=== PATIENT | male | born 1940 | race Caucasian/White ===

== ENCOUNTER → 2018-11-24 06:36 | Outpatient (CLI) | payer MEDICARE, OTHER, SELFPAY ==
[2018-11-20 10:16] VITALS: BMI 21.0
--- NOTE | 2018-11-24 11:08 | PFTCOMP ---
COMPLETE PULMONARY FUNCTION TEST INTERPRETATION Brief HPI: Patient is a 78 year old male, currently under the care of myself, who presents to [facility] for complete pulmonary function tests secondary to diagnosis of dyspnea. Respiratory therapist reports good effort and reproducible results. Interpretation: Forced expiration spirometry shows a very severe large airways obstructive ventilatory defect with an FEV1 of 18% predicted. There is no significant bronchodilator response by strict ATS criteria. Spirograms are of good quality and plateau slowly, indicating slowly emptying areas of the lungs. The respiratory flow volume loop shows decreased expiratory flow rates at all lung volumes consistent with airway obstruction. Lung volumes by body plethysmography show a normal total lung capacity at 6.82 L, 87% predicted. FRC and RV are elevated out of proportion. Lung volume measurements are consistent with air-trapping. Diffusion capacity by carbon monoxide is decreased at 49% predicted. The airway resistance is elevated. No previous pulmonary function tests were available for review. Impression: Irreversible very severe large airways obstructive ventilatory defect resulting in air trapping, with a symmetric reduction diffusing capacity, consistent with a diagnosis of advanced COPD
--- OUTSIDE RECORDS SUMMARY | 2019-01-26 06:56 | XMS RPT_ITS ---
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 BASO % 0.1 LAB Lymph #(LOINC) 0.80 - 2.80 x10EE3/U Low L Lymph # 0.30 LAB Neut #(LOINC) 1.50 - 7.10 x10EE3/U L Neut # High 8.20 LAB [place] #(LOINC) 0.20 - 1.00 x10EE3/U L [place] # 0.40 LAB EO #(LOINC) 0.00 - 0.50 x10EE3/U L EO # 0.00 LAB Baso #(LOINC) 0.00 - 0.10 x10EE3/U L Baso # 0.00 LAB MANUAL DIFF(LOINC) MANUAL DIFF N/A LAB MORPHOLOGY(LOINC ) MORPHOLOGY N/A Result Comment: {CD] Performed By: #### [id number] #### [facility],[address] [place] [id number] TROPONIN Collected: 11/08/2018 Status: F Source: [facility] 4:54 AM [facility] REPOSITORY TYPE CODE TESTS RESULT OUT OF REFERENCE UNITS RANGE LAB TROPONIN 0.00 - 0.05 ng/ml I(LOINC) TROPONIN I 0.01 Result Comment: Elevated troponin (above the 99th percentile) usually indicates myocardial ischemia. Results must be interpreted within the clinical setting. 1.Non-ischemic pathology can also cause elevated troponin levels (e.g., acute pulmonary embolism, myocarditis, pericarditis, heart failure, intracranial injury, rhabdomyolisis, sepsis, shock and renal insufficiency). 2.Approximately 1% of healthy adults have elevated troponin levels. 3.Analytical false positive results rarely occur(due to multiple interferences such as heterophile antibodies). Performed By: #### [id number] #### [facility],[address] [place] [address] BMP WITH EGFR Collected: 11/08/2018 Status: F Source: [facility] 4:54 AM [facility] REPOSITORY TYPE CODE TESTS RESULT OUT OF RANGE REFERENCE UNITS LAB BMP with eGFR(LOINC) BMP with eGFR Result Comment: BASIC METABOLIC PANEL LAB SODIUM(LOINC) 136 - 145 mmol/l SODIUM Low 135 LAB POTASSIUM(LOINC) 3.5 - 5.1 mmol/L POTASSIUM 4.1 LAB CHLORIDE(LOINC) 98 - 107 mmol/L CHLORIDE 100 LAB CO2(LOINC) 21.0 - mmol/L 31.0 CO2 29.0 LAB GLUCOSE(LOINC) 74 - 106 mg/dl GLUCOSE High 179 LAB BUN(LOINC) 6 - 20 mg/dl BUN 17 LAB CREATININE(LOINC) 0.7 - 1.3 mg/dl CREATININE 1.1 LAB CALCIUM(LOINC) 8.6 - mg/dl 10.2 CALCIUM 8.6 LAB ANION GAP(LOINC) 10 - 20 mmol/L ANION GAP 10 LAB AGE(LOINC) years AGE 78 LAB eGFR(LOINC) 60 - 999 ML/MINUTE eGFR >60 LAB eGFR(AA)(LOINC) 60 - 999 ML/MINUTE eGFR(AA) >60 Result Comment: ACCORDING TO THE NATIONAL KIDNEY DISEASE EDUCATION PROGRAM(NKDE), A NORMAL eGFR IS A VALUE GREATER THAN OR EQUAL TO 60 ML/MIN/1.73 SQ METERS. CHRONIC KIDNEY DISEASE: <60mL/MIN/1.73 SQ METERS KIDNEY FAILURE: <15mL/MIN/1.73 SQ METERS THIS TEST SHOULD ONLY BE USED FOR PATIENTS 18 YEARS OF AGE AND OLDER. Performed By: #### [id number] #### [facility],[address] [facility] [id number] CBC Collected: 11/08/2018 Status: F [facility] AM [facility] REPOSITORY TYPE CODE TESTS RESULT OUT OF RANGE REFERENCE UNITS LAB CBC(LOINC) CBC Result Comment: CBC-COMPLETE BLOOD COUNT LAB WBC(LOINC) 4.5 - 10.8 x 10EE3/UL WBC 8.1 LAB RBC(LOINC) 4.50 - x 10EE6/UL 6.00 RBC Low 3.81 LAB HEMOGLOBIN(LOINC 13.0 - g/dl ) 17.5 Low HEMOGLOBIN 10.8 LAB HEMATOCRIT(LOINC 40.0 - % ) 52.0 Low HEMATOCRIT 31.6 LAB MCV(LOINC) 81 - 98 fl MCV 83 LAB MCH(LOINC) 27 - 33 pg MCH 28 LAB MCHC(LOINC) 32 - 36 X10 3 MCHC 34 LAB RDW/CV(LOINC) 12.0 - % 15.6 RDW/CV High 15.8 LAB PLATELET(LOINC) 150 - 450 x10EE3/UL PLATELET 156 LAB MPV(LOINC) 6.4 - 10.5 fl MPV 10.1 Result Comment: AUTOMATED DIFFERENTIAL LAB NEUT %(LOINC) 46.0 - 76.0 % NEUT % High 96.3 LAB LYMPH %(LOINC) 20.0 - 45.0 % Low LYMPH % 2.5 LAB MONOS %(LOINC) 0.0 - 10.0 % MONOS % 1.1 LAB EO %(LOINC) 0.0 - 7.0 % EO % 0.0 LAB BASO %(LOINC) 0.0 - 2.0 % BASO % 0.1 LAB Lymph #(LOINC) 0.80 - 2.80 x10EE3/U Low L Lymph # 0.20 LAB Neut #(LOINC) 1.50 - 7.10 x10EE3/U L Neut # High 7.80 LAB [place] #(LOINC) 0.20 - 1.00 x10EE3/U Low L [place] # 0.10 LAB EO #(LOINC) 0.00 - 0.50 x10EE3/U L EO # 0.00 LAB Baso #(LOINC) 0.00 - 0.10 x10EE3/U L Baso # 0.00 LAB MANUAL DIFF(LOINC) MANUAL DIFF N/A LAB MORPHOLOGY(LOINC ) MORPHOLOGY N/A Result Comment: {CD] Performed By: #### [id number] #### [place] [id number] TROPONIN Collected: 11/07/2018 Status: F Source: [facility] 10:56 PM [facility] REPOSITORY TYPE CODE TESTS RESULT OUT OF REFERENCE UNITS RANGE LAB TROPONIN 0.00 - 0.05 ng/ml I(LOINC) TROPONIN I <0.01 Result Comment: Elevated troponin (above the 99th percentile) usually indicates myocardial ischemia. Results must be interpreted within the clinical setting. 1.Non-ischemic pathology can also cause elevated troponin levels (e.g., acute pulmonary embolism, myocarditis, pericarditis, heart failure, intracranial injury, rhabdomyolisis, sepsis, shock and renal insufficiency). 2.Approximately 1% of healthy adults have elevated troponin levels. 3.Analytical false positive results rarely occur(due to multiple interferences such as heterophile antibodies). Performed By: #### [id number] #### [place] [id number] TROPONIN Collected: 11/07/2018 Status: F Source: [facility] 7:41 PM [facility] REPOSITORY TYPE CODE TESTS RESULT OUT OF REFERENCE UNITS RANGE LAB TROPONIN 0.00 - 0.05 ng/ml I(LOINC) TROPONIN I <0.01 Result Comment: Elevated troponin (above the 99th percentile) usually indicates myocardial ischemia. Results must be interpreted within the clinical setting. 1.Non-ischemic pathology can also cause elevated troponin levels (e.g., acute pulmonary embolism, myocarditis, pericarditis, heart failure, intracranial injury, rhabdomyolisis, sepsis, shock and renal insufficiency). 2.Approximately 1% of healthy adults have elevated troponin levels. 3.Analytical false positive results rarely occur(due to multiple interferences such as heterophile antibodies). Performed By: #### [id number] #### [place] [id number] CBC Collected: 11/07/2018 Status: F Source: [facility] 5:15 PM [facility] REPOSITORY TYPE CODE TESTS RESULT OUT OF RANGE REFERENCE UNITS LAB CBC(LOINC) CBC Result Comment: CBC-COMPLETE BLOOD COUNT LAB WBC(LOINC) 4.5 - 10.8 x 10EE3/UL WBC 8.0 LAB RBC(LOINC) 4.50 - x 10EE6/UL 6.00 RBC Low 4.39 LAB HEMOGLOBIN(LOINC 13.0 - g/dl ) 17.5 Low HEMOGLOBIN 12.0 LAB HEMATOCRIT(LOINC 40.0 - % ) 52.0 Low HEMATOCRIT 36.6 LAB MCV(LOINC) 81 - 98 fl MCV 84 LAB MCH(LOINC) 27 - 33 pg MCH 27 LAB MCHC(LOINC) 32 - 36 X10 3 MCHC 33 LAB RDW/CV(LOINC) 12.0 - % 15.6 RDW/CV High 16.3 LAB PLATELET(LOINC) 150 - 450 x10EE3/UL PLATELET 175 LAB MPV(LOINC) 6.4 - 10.5 fl MPV 10.2 Result Comment: AUTOMATED DIFFERENTIAL LAB NEUT %(LOINC) 46.0 - 76.0 % NEUT % High 84.2 LAB LYMPH %(LOINC) 20.0 - 45.0 % Low LYMPH % 6.4 LAB MONOS %(LOINC) 0.0 - 10.0 % MONOS % 7.5 LAB EO %(LOINC) 0.0 - 7.0 % EO % 1.2 LAB BASO %(LOINC) 0.0 - 2.0 % BASO % 0.7 LAB Lymph #(LOINC) 0.80 - 2.80 x10EE3/U Low L Lymph # 0.50 LAB Neut #(LOINC) 1.50 - 7.10 x10EE3/U L Neut # 6.70 LAB [place] #(LOINC) 0.20 - 1.00 x10EE3/U L [place] # 0.60 LAB EO #(LOINC) 0.00 - 0.50 x10EE3/U L EO # 0.10 LAB Baso #(LOINC) 0.00 - 0.10 x10EE3/U L Baso # 0.10 LAB MANUAL DIFF(LOINC) MANUAL DIFF N/A LAB MORPHOLOGY(LOINC ) MORPHOLOGY N/A Result Comment: {CD] Performed By: #### [id number] #### [facility],[address] [place], [place] [id number] D-DIMER, QUANTITATIVE Collected: 11/07/2018 Status: F Source: [facility] 5:15 PM [facility] REPOSITORY TYPE CODE TESTS RESULT OUT OF REFERENCE UNITS RANGE LAB D-DIMER, QUANTITATI VE(LOINC) D-DIMER, QUANTITATIVE Result Comment: QUANT D-DIMER LAB D-DIMER QUANT(LOINC) 0 - 230 ng/ml D-DIMER QUANT 150 Performed By: #### [id number] #### [place] [id number] Observed: 11/07/2018 Status: F Source: [facility] INFLUENZA VIRUS RAPID 5:15 [facility] A/B REPOSITORY INFLUENZA A NEGATIVE INFLUENZA B NEGATIVE INTERNAL NEG QC PASS INTERNAL POS QC PASS EXTERNAL QC DONE? YES A NEGATIVE TEST RESULT DOES NOT EXCLUDE INFECTION WITH INFLUENZA A OR B. THEREFORE, THE RESULTS OBTAINED FROM THIS FLU TEST SHOULD BE USED IN CONJUCTION WITH CLINICAL FINDINGS TO MAKE AN ACCURATE DIAGNOSIS. A POSITIVE RESULT DOES NOT RULE OUT CO-INFECTIONS WITH OTHER PATHOGENS OR IDENTIFY ANY SPECIFIC INFLUENZA A VIRUS SUBTYPE.CO-INFECTION WITH INFLUENZA A AND B IS RARE. IT IS RECOMMENDED THAT DUAL POSITIVE RESULTS BE CONFIRMED BY VIRAL CULTURE OR AN FDA-CLEARED INFLUENZA A AND B MOLECULAR ASSAY. INDIVIDUALS WHO HAVE RECEIVED NASALLY ADMINISTERED INFLUENZA A VACCINE MAY TEST POSITIVE IN COMMERCIALLY AVAILABLE INFLUENZA RAPID DIAGNOSTIC TESTS FOR UP TO THREE DAYS. Performed By: #### [id number] #### [place] [id number] LACTATE Collected: 11/07/2018 Status: F Source: [facility] 5:15 [facility] REPOSITORY TYPE CODE TESTS RESULT OUT OF REFERENCE UNITS RANGE LAB LACTATE(KIYA 4.5 - 18.0 mg/dL NM) LACTATE 9.3 Performed By: #### [id number] #### [place] [id number] TROPONIN Collected: 11/07/2018 Status: F Source: [facility] 5:15 [facility] REPOSITORY TYPE CODE TESTS RESULT OUT OF REFERENCE UNITS RANGE LAB TROPONIN 0.00 - 0.05 ng/ml I(LOINC) TROPONIN I 0.01 Result Comment: Elevated troponin (above the 99th percentile) usually indicates myocardial ischemia. Results must be interpreted within the clinical setting. 1.Non-ischemic pathology can also cause elevated troponin levels (e.g., acute pulmonary embolism, myocarditis, pericarditis, heart failure, intracranial injury, rhabdomyolisis, sepsis, shock and renal insufficiency). 2.Approximately 1% of healthy adults have elevated troponin levels. 3.Analytical false positive results rarely occur(due to multiple interferences such as heterophile antibodies). Performed By: #### [id number] #### [facility],[address] [place] [address] CMP WITH EGFR Collected: 11/07/2018 Status: F Source: [facility] 5:15 PM [facility] REPOSITORY TYPE CODE TESTS RESULT OUT OF RANGE REFERENCE UNITS LAB CMP with eGFR(LOINC) CMP with eGFR Result Comment: COMPREHENSIVE METABOLIC PANEL LAB SODIUM(LOINC) 136 - 145 mmol/l SODIUM 136 LAB POTASSIUM(LOINC) 3.5 - 5.1 mmol/L POTASSIUM 3.8 LAB CHLORIDE(LOINC) 98 - 107 mmol/L CHLORIDE 98 LAB CO2(LOINC) 21.0 - mmol/L 31.0 CO2 31.0 LAB GLUCOSE(LOINC) 74 - 106 mg/dl GLUCOSE 100 LAB BUN(LOINC) 6 - 20 mg/dl BUN 15 LAB CREATININE(LOINC) 0.7 - 1.3 mg/dl CREATININE 1.1 LAB AST/SGOT(LOINC) 13 - 39 U/L AST/SGOT 16 LAB ALK PHOS(LOINC) 38 - 126 U/L ALK PHOS 53 LAB CALCIUM(LOINC) 8.6 - mg/dl 10.2 CALCIUM 9.3 LAB TOTAL PROTEIN(LOINC) 6.4 - 8.3 g/dl TOTAL PROTEIN 7.4 LAB ALBUMIN(LOINC) 3.4 - 4.8 g/dL ALBUMIN 4.1 LAB GLOBULIN(LOINC) 1.5 - 3.8 G/DL GLOBULIN 3.3 LAB A/G RATIO(LOINC) 0.9 - 1.6 A/G RATIO 1.2 LAB TOTAL BILI(LOINC) 0.0 - 1.5 mg/dl TOTAL BILI 0.6 LAB B/C RATIO(LOINC) 0 - 30 ratio B/C RATIO 14 LAB ALT/SGPT(LOINC) 10 - 40 U/L ALT/SGPT 10 LAB ANION GAP(LOINC) 10 - 20 mmol/L ANION GAP 11 LAB AGE(LOINC) years AGE 78 LAB eGFR(LOINC) 60 - 999 ML/MINUTE eGFR >60 LAB eGFR(AA)(LOINC) 60 - 999 ML/MINUTE eGFR(AA) >60 Result Comment: ACCORDING TO THE NATIONAL KIDNEY DISEASE EDUCATION PROGRAM(NKDE), A NORMAL eGFR IS A VALUE GREATER THAN OR EQUAL TO 60 ML/MIN/1.73 SQ METERS. CHRONIC KIDNEY DISEASE: <60mL/MIN/1.73 SQ METERS KIDNEY FAILURE: <15mL/MIN/1.73 SQ METERS THIS TEST SHOULD ONLY BE USED FOR PATIENTS 18 YEARS OF AGE AND OLDER. Performed By: #### [id number] #### [facility],[address] [place] [address] BNP (B-TYPE NATRIURETIC Collected: 11/07/2018 Status: F Source: [facility] PEPTIDE) 5:15 PM [facility] REPOSITORY TYPE CODE TESTS RESULT OUT OF RANGE REFERENCE UNITS LAB BNP(LOINC) 1 - 100 pg/ml BNP 70 Performed By: #### [id number] #### [facility],[address] [place] [address] Observed: 11/07/2018 Status: F Source: [facility] CULTURE BLOOD 5:15 PM [facility] REPOSITORY CULTURE BLOOD CULTURE BLOOD SET: 1 of 2 24HOUR REPORT NEGATIVE 48HOUR REPORT NEGATIVE 72HOUR REPORT NEGATIVE M I C R O B I O L O G Y R E P O R T FINAL Antimicrobial Susceptibility and Organism Identification Report Specimen Number : [id number] Requested : 11/07/18 Specimen Source : BLOOD Collected : 11/07/18 17:15 [facility] [place] : Emergency Room Received : 11/07/18 17:15 Requesting Physician : YIN BELL Patient/Specimen Tests and Comments Specimen Comments FINAL REPORT: No Growth at 5 Days Tech : Source : BLOOD ID # : [id number] FINAL Report Date : / / : Collected : 11/07/18 17:15 [email or web address] 11/[email or web address] Performed By: #### [id number] #### [facility],[address] [place] [address] Observed: 11/07/2018 Status: F Source: [facility] BLOOD 5:15 PM [facility] REPOSITORY CULTURE BLOOD CULTURE BLOOD SET: 2 of 2 24HOUR REPORT NEGATIVE 48HOUR REPORT NEGATIVE 72HOUR REPORT NEGATIVE M I C R O B I O L O G Y R E P O R T FINAL Antimicrobial Susceptibility and Organism Identification Report Specimen Number : [id number] Requested : 11/07/18 Specimen Source : BLOOD Collected : 11/07/18 17:15 [facility] [place] : Med/Surg Received : 11/07/18 17:15 Requesting Physician : YIN BELL Patient/Specimen Tests and Comments Specimen Comments FINAL REPORT: No Growth at 5 Days Tech : Source : BLOOD ID # : [id number] FINAL Report Date : / / : Collected : 11/07/18 17:15 11/13/[email or web address] 11/13/[email or web address] Performed By: #### [id number] #### [facility],[address] [place] [address] CHEST 1 VIEW Observed: 11/07/2018 Status: F Source: [facility] 4:55 PM [place] [address] Patient: MARY RODRIGUEZ Phone#: : [phone] Age: 78 Gender: M Pt. Type: ER Account: [id number] Location: [facility] Ordering: DIEUDONNE JONES Exam Date: 11/07/2018/16:46 Family Phys: KALPESH HORVATH Charge Code: 635018 Physician: Sequoyah Order #: [id number] DLP Dose#: PROCEDURE: X-RAY CHEST 1 VIEW COMPARISON: [facility], XR, CHEST 1 VIEW, 09/18/2018, 19:09. INDICATIONS: Shortness of breath FINDINGS: LUNGS: The lungs are hyperinflated. Streaky and bilateral lower lobe densities improved since prior exam. They've be related to chronic interstitial change. VASCULATURE: Normal. Unremarkable pulmonary vasculature. CARDIAC: Normal. No cardiac silhouette abnormality or cardiomegaly. MEDIASTINUM: Normal. No visible mass or adenopathy. PLEURA: Normal. No effusion or pleural thickening. BONES: Normal. No fracture or visible bony lesion. OTHER: Negative. CONCLUSION: Streaky lower lobe densities improved since prior exam. Possible chronic interstitial change. COPD. Dictated by: Rachel Chang MD on 11/08/2018 at 11:07 Approved by: Rachel Chang MD on 11/08/2018 at 11:07 EMERGENCY REPORT Observed: 11/07/2018 Status: F Source: [facility] 4:29 PM [facility] EMERGENCY ROOM REPORT NAME ACCOUNT SEX AGE ADMIT DISCHARGE PT MED. RECORD# NUMBER DATE DATE TYPE MARY RODRIGUEZ [id number] M 78 11/07/18 1 [id number] ROOM: [facility] DATE OF : 1940 DICTATING PHYSICIAN: Dieudonne Jones CHIEF COMPLAINT: Shortness of breath. HISTORY OF PRESENT ILLNESS: Patient has known significant COPD. Since yesterday, and particularly today, he has had increasing shortness of breath. It is particularly worse with activity. He can hardly walk more than a couple of steps without stopping, but he feels short of breath even at rest. He has not had any fever. He has a slight cough that is not productive. No chills, no nausea or vomiting. He has been able to eat. He is not complaining of any chest pain. PAST MEDICAL HISTORY: As mentioned, significant for advanced COPD, also hypertension. PAST SURGICAL HISTORY: No previous surgeries. MEDICATIONS: He is on O2 at home at 2 liters p.r.n. but he has been using it more through the day today. ALLERGIES: He has no allergies. SOCIAL HISTORY: He lives at home. He does not smoke or drink alcohol. REVIEW OF SYSTEMS: As mentioned above. No pain or swelling to his extremities. No weakness to his extremities. PHYSICAL EXAMINATION: This is a 78-year-old thin, white male who is alert and appropriate. Patient does not appear toxic, though mild to moderate dyspnea at rest. His skin is pink, warm and dry. HEENT Exam: Eyes, ears, nose, mouth and throat are all within normal limits. His neck is supple without any JVD. Very diminished breath sounds though equal bilaterally. A hint of expiratory wheeze bilaterally. Cardiac exam, regular rhythm without ectopy or murmurs. No chest wall tenderness. Abdomen is soft and nontender. He moves extremities appropriately without any focal weaknesses. Good peripheral pulses and generally good capillary refill. Vital Signs: Temperature 99.3, pulse 99, respirations 24, blood pressure 163/87, O2 saturation on a couple of liters were about 87 to 88%. DIAGNOSTIC DATA: EKG did not show any acute abnormalities. Chest x-ray and lab studies were obtained. Chest x-ray per my reading showed the possibility of a minimal Page 1 of 2 MARY RODRIGUEZ Emergency Room Report left lower lobe infiltrate. Lab studies returned showing a CBC with a white count of 8000 and 84% neutrophils. H&H was 12 and 36.6. D-dimer was normal. Lactate, BNP and troponin were all normal. CMP was normal. EMERGENCY DEPARTMENT COURSE AND TREATMENT: I did increase his O2 to 3-4 liters. IV was placed. He was given a DuoNeb aerosol. He was given Solu-Medrol IV. He did feel slightly improved with the increased O2 and DuoNeb aerosol. He was begun on Rocephin IV in the ED. DIAGNOSIS: Chronic obstructive pulmonary disease exacerbation with hypoxemia and possible pneumonitis. PLAN/DISPOSITION: Discussed with Dr. Zavaleta who will admit for further management. Dictated By: Dieudonne Jones MD 11/07/18 20:05 JOB #: [id number] Transcribed By: alexandra 11/07/18 20:16 Electronically signed by: JALIL Jones M.D. 11/12/18 19:55 Page 2 of 2 MARY RODRIGUEZ Emergency Room Report HISTORY AND PHYSICAL Observed: 11/07/2018 Status: F Source: [facility] 4:29 PM [facility] HISTORY & PHYSICAL NAME ACCOUNT SEX AGE ADMIT DISCHARGE PT MED. RECORD# NUMBER DATE DATE TYPE MARY RODRIGUEZ [id number] M 78 11/07/18 1 [id number] ROOM: [facility] DATE OF : [birth year] DICTATING PHYSICIAN: Jesus Zavaleta ADMITTING DIAGNOSES: 1. Chronic obstructive pulmonary disease exacerbation. 2. Pneumonia. CHIEF COMPLAINT: Cough and shortness of breath. HISTORY OF PRESENT ILLNESS: The patient is a 78-year-old gentleman with a history of COPD. The patient was in usual state of health. He stated to get ill at least a few days prior to admission. His symptoms were mainly increasing shortness of breath. He did start about a week earlier with some cough. The cough usually is productive in his case with phlegm on a daily basis, but he noticed some increasing in the amount of phlegm he brings up. The color has changed to darker, and then on the day of admission he became markedly short of breath, barely could walk a few steps, and he presented to the emergency room. In the emergency room, he was tachypneic at rest and he was admitted for management when he was found to have bilateral wheezes. His white count was normal, but he had left shift. Chest x-ray revealed an infiltrate. When I saw the patient, he was coughing a lot. He had a lot of drainage with complaint also about postnasal drip and also he had shortness of breath. He denied any shaking chills or fever. The patient's appetite has been good. He has no significant weight loss or gain. PAST MEDICAL HISTORY: Remarkable for (1) COPD. I do not see in the medical record where we have pulmonary function test on this gentleman. (2) Chronic oxygen use. The patient uses that at home. (3) Right inguinal hernia repair. (4) Hypertension. (5) Teeth extraction. MEDICATIONS: The patient is on (1) Atenolol 25 mg daily. (2) Ipratropium nasal spray 2 sprays each nostril twice a day. (3) DuoNeb treatment twice a day. (4) Losartan 50 mg daily. (5) Mucinex 1200 mg twice daily. (6) Symbicort 2 puffs twice a day. (7) Tamsulosin 0.4 mg daily. (8) Ventolin 2 puffs as needed. (9) Hydrochlorothiazide 25 mg daily. ALLERGIES: No known drug allergies. FAMILY HISTORY: Fathers side of the family history had cancer. Father was a smoker Page 1 of 3 MARY RODRIGUEZ History & Physical and had a lot of alcohol. There is no family history of coronary artery disease. SOCIAL HISTORY: The patient is . He quit smoking when he was 37 years old. He did smoke for about 20 years. 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 He has 2 daughters. REVIEW OF SYSTEMS: The patient has denied fever, chills, and night sweats. No weight loss or gain. No headache, blurry vision, or earache. He does have postnasal drip. No neck pain. No chest pain. He had shortness of breath and cough. No nausea, vomiting, abdominal pain, diarrhea, constipation, difficulty with urination, increased frequency or burning, and no skin rashes. PHYSICAL EXAMINATION GENERAL APPEARANCE: This is a 78-year-old gentleman sitting up in bed. VITAL SIGNS: Highest temperature 99.4, blood pressure now 120/64, respirations 18, and heart rate 84. HEENT: Pupils are round, equal, and reactive. Normal eye motion. No congestion. No icterus. No sinus tenderness. Tongue to midline. NECK: Neck is supple. LUNGS: Revealed bilateral wheezes and rhonchi. HEART: Regular and distant. ABDOMEN: Soft. No tenderness. EXTREMITIES: Revealed no edema or cyanosis. He had moderate clubbing. DIAGNOSTIC DATA: Laboratory data has revealed the following: His white count was 8000, hemoglobin 12, hematocrit 36.6. He had 84.2% neutrophils. Cardiac markers are negative. Sodium 136, potassium 3.8, BUN 15, creatinine 1.1. IMPRESSION: 1. Acute chronic obstructive pulmonary disease exacerbation. 2. Pneumonia based on the chest x-ray findings. PLAN: 1. Admit the patient to the hospital. 2. Broad spectrum antibiotic. 3. Steroids. 4. Bronchodilator. 5. Deep venous thrombosis prophylaxis. 6. Saline nose spray. Page 2 of 3 MARY RODRIGUEZ History & Physical 7. The above was discussed with the patient and his family, the plan of care. I did question the patient whether he has been exposed to asbestos, and apparently he was not or at least he does not think he ever was. His history of tobacco is somewhat limited, but he does appear to be doing fairly well with his chronic obstructive pulmonary disease. He has home oxygen, but he is stable and he does not have frequent hospital admissions. Dictated By: Jesus Zavaleta MD 11/08/18 15:12 JOB #: [id number] Transcribed By: abrahan 11/08/18 16:28 Electronically signed by: E-Sign: JESUS ZAVALETA MD 11/24/18 09:45 Update to H&P: [ ] No changes: I have examined the patient and reviewed the H&P and there are no changes. [ ] As previously dictated with the following changes: PHYSICIAN SIGNATURE: TIME: DATE: Page 3 of 3 MARY RODRIGUEZ History & Physical PROGRESS NOTES Observed: 11/07/2018 Status: F Source: [facility] 4:29 PM [facility] PROGRESS NOTE NAME ACCOUNT SEX AGE ADMIT DISCHARGE PT MED. RECORD# NUMBER DATE DATE TYPE MARY RODRIGUEZ [id number] M 78 11/07/18 1 [id number] ROOM: [facility] DATE OF : 1940 DICTATING PHYSICIAN: Jesus Zavaleta DATE OF SERVICE: November 09, 2018 SUBJECTIVE: He feels better today. He continues with a cough productive of yellow phlegm. No chest pain. Update from nursing staff as well. OBJECTIVE: Blood pressure is 125/59, heart rate 90, respirations 14, temperature 98.6, and oxygen saturation 95% on 2 liters. This is a well- nourished, well-developed male in no acute distress. Neck is supple. No JVD. Lungs with normal respiratory effort and improved rhonchi with a few scattered wheezes but better. Heart is a regular rate and rhythm. Abdomen is soft and nontender. Extremities: No edema with moderate clubbing. DIAGNOSTIC DATA: White count is 8.9, hemoglobin 10.7, and hematocrit 32.5. Troponins were negative. Sodium is 138, potassium 4.1, BUN 25, and creatinine 1.1. Blood cultures are negative at 24 hours. ASSESSMENT/PLAN: 1. Acute chronic obstructive pulmonary disease exacerbation, improving on steroids, oxygen support and bronchodilators. 2. Acute community-acquired pneumonia, on broad-spectrum intravenous antibiotics, afebrile with normal white count. The above was discussed with the patient. All of his questions were answered, and he verbalized understanding of the plan. Possible discharge home tomorrow if stable. Dictated by joselin Sanford for Dr. Zavaleta. I examined the patient myself , the above E&M is accurate and done by me Naren Zavaleta M.D. Dictated By: Jesus Zavaleta MD 11/09/18 10:58 JOB #: [id number] Transcribed By: honey 11/09/18 11:50 Electronically signed by: E-Sign: JESUS ZAVALETA MD 11/24/18 09:50 Page 1 of 1 MARY RODRIGUEZ Progress Note DISCHARGE SUMMARY Observed: 11/07/2018 Status: F Source: [facility] 4:29 PM [facility] DISCHARGE SUMMARY NAME ACCOUNT SEX AGE ADMIT DISCHARGE PT MED. RECORD# NUMBER DATE DATE TYPE MARY RODRIGUEZ [id number] M 78 11/07/18 11/10/18 1 [id number] ROOM: [facility] DATE OF : 1940 DICTATING PHYSICIAN: Jesus Zavaleta FINAL DIAGNOSES: 1. Acute chronic obstructive pulmonary disease exacerbation. 2. Acute community acquired pneumonia. DIAGNOSTIC DATA: Laboratory findings on discharge: White count 7.7, hemoglobin 10.5, hematocrit 31.2. Troponins negative. Sodium 138, potassium 4.2, BUN 31, creatinine 1.2. Glucose 140. Blood cultures negative at 48 hours. HOSPITAL COURSE: For a full history and physical, please see the chart. For a brief summary, see below. This is a 78-year-old male with past medical history significant for COPD, chronic oxygen use at home, and hypertension. He came in with cough increasing with increasing shortness of breath. He came to the emergency room. He was tachypneic, bilateral wheezes, normal white count, but a left shift. Chest x-ray revealed infiltrate. He had a lot of postnasal drip, as well as cough. He was admitted to the hospital with acute community acquired pneumonia and COPD exacerbation, oxygen support, steroids, bronchodilators, and broad spectrum IV antibiotics. Blood cultures were obtained and were negative, saline nasal spray. I could not find a pulmonary function test review; however, he is on chronic oxygen support at home. Today, on the date of discharge, his daughter is present. He feels he is ready to go home. Blood pressure 125/64, heart rate 84, respirations 24, temperature 98.6, oxygen saturation 92 to 94% on 2 liters, which he wears at home. This is a well-developed 78-year-old male in no acute distress. He is alert, pleasant, and cooperative and able to answer questions appropriately. Neck is supple. No JVD. Lungs: Normal respiratory effort, equal lung expansion, diminished breath sounds bilaterally, a few scattered wheezes and prolonged expiration. Heart: Regular rate and rhythm. Discharge instructions were discussed with him and his daughter at the bedside. All of their questions were answered. They verbalized understanding of the plan. It was recommended that he follow up with Dr. Horvath and recommend pulmonary function tests in 6 weeks. DISPOSITION: Discharge destination home. MEDICATIONS ON DISCHARGE: (1) Ceftin 500 mg twice daily for 5 days. (2) Saline nasal spray 2 sprays each nostril 4 times daily. (3) Prednisone 40 mg p.o. daily for 5 days. (4) Delsym 10 mL every 12 hours for cough. All other medications are as at home including (5) Albuterol aerosol treatments 4 times daily p.r.n. (6) DuoNeb treatments 2 times daily p.r.n. (7) Symbicort 160/4.5 1 inhalation daily. (8) Ventolin Page 1 of 2 MARY RODRIGUEZ Discharge Summary inhaler 2 puffs every 4 to 6 hours p.r.n. (9) Mucinex 1200 mg twice daily. (10) Atenolol 25 mg daily. (11) Losartan 50 mg daily. (12) Hydrochlorothiazide 25 mg daily. (13) Tamsulosin 0.4 mg daily. DISCHARGE INSTRUCTIONS/PLAN: Increase activity as tolerated. Acapella, incentive spirometry, low-salt diet. Follow up with Dr. Horvath on November 17 at 10:20 a.m. Recommend pulmonary function test in 6 weeks. I examined the patient myself , the above E&M is accurate and done by me Naren Zavaleta M.D. Dictated by joselin Sanford for Jesus Zavaleta M.D. 11/10/18 11:14 JOB #: [id number] Transcribed By: am 11/10/18 16:31 Electronically signed by: E-Sign: JESUS ZAVALETA MD 11/24/18 10:18 Page 2 of 2 MARY RODRIGUEZ Discharge Summary Observed: 09/19/2018 Status: F Source: [facility] CULTURE SPUTUM 3:20 [facility] REPOSITORY CULTURE SPUTUM _SPUTUM CULTURE_ SPUTUM SPECIMEN EXAMINATION SPUTUM ACCEPTABLE ? GRAM STAIN AMOUNT AND DESCRIPTION _MANY_GRAM_POSITIVE_RODS 09/19/18.JLN. _MODERTE_GRAM_POSITIVE_COCCI 09/19/18.940.JLN. M I C R O B I O L O G Y R E P O R T FINAL Antimicrobial Susceptibility and Organism Identification Report Specimen Number : [id number] Requested : 09/19/18 Specimen Source : SPUTUM Collected : 09/19/18 03:20 [facility] : Med/Surg Received : 09/19/18 03:20 Requesting Physician : JACOB Patient/Specimen Tests and Comments Specimen Comments FINAL REPORT: SCANT GROWTH GRAM NEGATIVE RODS Organisms Identified -------- * 01 Stenotrophomonas maltophilia //18 Tech : Source : SPUTUM ID # : [id number] FINAL Report Date : / / : Collected : 09/19/18 03:20 Continued on Next Page M I C R O B I O L O G Y R E P O R T FINAL Antimicrobial Susceptibility and Organism Identification Report Isolate 01 Stenotrophomonas maltophilia Stenotrophomonas maltophilia DRUG TERA Sys. Urine UNITS --- ----- ----- Ceftazidime 16 I Ertapenem >4 Levofloxacin <=2 S Tobramycin 8 +, ++, +++, or S = Susceptible N/R = Not Reported Shital = Beta Lactamase Positive I = Intermediate CC = Cost Code TFG = Thymidine-dependent Strain R = Resistant TERA = mcg/ml (mg/L) Blank = Data not available, or drug not advisable or tested For Blood and CSF Isolates, a Beta-Lactamase test is recommended for Enterococus species. IB appears in place of S, I (S), +, ++, or +++ with species known to possess inducible B-lactamases; potentially they may become resistant to all B-lactam drugs. Monitoring of patients during/after therapy is recommended. Avoid other/combined B-lactam drugs. (a) Use maximum doses of drug with an aminoglycoside for P. aeruginosa in patients with granulocytopenia or serious infections. (b) Breakpoints based on parenteral dose. For cefuroxime Axetil (PO) use <8=S, 8-16=I, >16=R. (c) For non-enterococcal streptococci, Micrococcus species, and Listeria species, refer to the Ampicillin interpretation. * Interpretations based on approx. adult attainable systemic/urine levels, except drugs with <3 dilutions, which print NCCLS. Doses are guidelines; consider weight and renal/hepatic function. Urine interpretation for lower UTI only. Interpretations based on NCCLS M7-A2. Ticar/K Clav'ate for gram positives based on regulator mechanic's breakpoints. Tech : Source : SPUTUM ID # : [id number] FINAL Report Date : / / : Collected : 09/19/18 03:20 09/22/18.1041.KLS. 09/20/18.0742.JLN. 09/22/18.1043.KLS.COMPLETE Performed By: #### [id number] #### [place] [address] CT CHEST (PE PROTOCOL) Observed: 09/18/2018 Status: F Source: [facility] 9:41 PM [place] [address] Patient: MARY RODRIGUEZ Phone#: : [phone] Age: 78 Gender: M Pt. Type: ER Account: [id number] Location: [facility] Ordering: JEISON JAMES Exam Date: 09/18/2018/21:30 Family Phys: KALPESH HORVATH Charge Code: 527164 Physician: Sequoyah Order #: [id number] DLP Dose#: PROCEDURE: CT CHEST WITH CONTRAST FOR PE COMPARISON: None. INDICATIONS: Shortness of breath. TECHNIQUE: After obtaining the patient's consent, CT images were obtained with non-ionic intravenous contrast material. Multi-planar images were created to optimize visualization of vascular anatomy with MPR/MIPS and 3D imaging. All CT scans at this facility use dose modulation, iterative reconstruction, and/or weight based dosing when appropriate to reduce radiation dose to as low as reasonably achievable. IV CONTRAST: Omnipaque 350,78ml TOTAL DOSE: 4.80 CTDIvol(mGy) FINDINGS: VASCULATURE: Normal. No visible pulmonary arterial thrombus or attenuation. AORTA: Normal. No aneurysm or dissection. LUNGS: Lingular infiltrate. Patchy bilateral lower lobe nodular infiltrates. Bibasilar atelectasis JAZ: Normal. No mass or adenopathy. MEDIASTINUM: Normal. No mass or adenopathy. CARDIAC: Normal. No enlargement, pericardial thickening, or significant calcification. PLEURA: Normal. No mass or effusion. CHEST WALL: Normal. No mass or axillary adenopathy. LIMITED ABDOMEN: Normal. Limited images of the upper abdomen are unremarkable. BONES: Normal. No bony lesion or fracture. OTHER: Negative. CONCLUSION: Continued Report - Page 2 of 2 Patient: MARY RODRIGUEZ Phone#: : [phone] Age: 78 Gender: M Pt. Type: ER Account: [id number] Location: 2 Ordering: JEISON JAMES Exam Date: 09/18/2018/21:30 Family Phys: KALPESH ANT Charge Code: [id number] Physician: Sequoyah Order #: [id number] DLP Dose#: 1. Patchy bilateral lower lobe infiltrates. 2. There is no evidence of pulmonary embolus. Dictated by: Rachel Chang MD on 09/20/2018 at 11:40 Approved by: Rachel Chang MD on 09/20/2018 at 11:40 ARTERIAL BLOOD GAS Collected: 09/18/2018 Status: F Source: [facility] ANALYSIS 8:04 PM [facility] REPOSITORY TYPE CODE TESTS RESULT OUT OF REFERENCE UNITS RANGE LAB ARTERIAL BLOOD GAS ANALYSIS(LOINC ) ARTERIAL BLOOD GAS ANALYSIS Result Comment: ARTERIAL BLOOD GAS LAB pH(LOINC) 7.35 - 7.45 7.45 pH LAB PCO2(LOINC) 35 - 45 mm Hg 40 PCO2 LAB PO2(LOINC) 80 - 105 mm Hg Low 65 PO2 LAB HCO3(LOINC) 22 - 26 mmol/L High 28 HCO3 LAB BE(LOINC) -2 - 3 High 4 BE LAB SaO2(LOINC) 95 - 98 Low 93 SaO2 Result Comment: TIME RESULT CALLED _2012 09/18/18.2012.JAN. { FIO2/LPM 4LPM LAB MODALITY(LOINC) MODALITY LRA LAB SPO2(LOINC) SPO2 93 LAB TOTAL RR(LOINC) TOTAL RR 20 LAB PULSE(LOINC) PULSE 115 LAB SAMPLE SITE(LOINC) SAMPLE SITE LRA LAB VENT(LOINC) VENT N/A LAB ALLENS TEST(LOINC) ALLENS TEST + Result Comment: { TIME CALLED 2212 Performed By: #### [id number] #### [place] [address] Observed: 09/18/2018 Status: F Source: [facility] INFLUENZA VIRUS RAPID 7:30 PM [facility] A/B REPOSITORY INFLUENZA A NEGATIVE INFLUENZA B NEGATIVE INTERNAL NEG QC PASS INTERNAL POS QC PASS EXTERNAL QC DONE? YES A NEGATIVE TEST RESULT DOES NOT EXCLUDE INFECTION WITH INFLUENZA A OR B. THEREFORE, THE RESULTS OBTAINED FROM THIS FLU TEST SHOULD BE USED IN CONJUCTION WITH CLINICAL FINDINGS TO MAKE AN ACCURATE DIAGNOSIS. A POSITIVE RESULT DOES NOT RULE OUT CO-INFECTIONS WITH OTHER PATHOGENS OR IDENTIFY ANY SPECIFIC INFLUENZA A VIRUS SUBTYPE.CO-INFECTION WITH INFLUENZA A AND B IS RARE. IT IS RECOMMENDED THAT DUAL POSITIVE RESULTS BE CONFIRMED BY VIRAL CULTURE OR AN FDA-CLEARED INFLUENZA A AND B MOLECULAR ASSAY. INDIVIDUALS WHO HAVE RECEIVED NASALLY ADMINISTERED INFLUENZA A VACCINE MAY TEST POSITIVE IN COMMERCIALLY AVAILABLE INFLUENZA RAPID DIAGNOSTIC TESTS FOR UP TO THREE DAYS. Performed By: #### [id number] #### [place] [address] Observed: 09/18/2018 Status: F Source: [facility] CULTURE BLOOD 7:25 PM [facility] REPOSITORY CULTURE BLOOD CULTURE BLOOD SET: 1 of 2 24HOUR REPORT NEGATIVE 48HOUR REPORT NEGATIVE 72HOUR REPORT NEGATIVE M I C R O B I O L O G Y R E P O R T FINAL Antimicrobial Susceptibility and Organism Identification Report Specimen Number : [id number] Requested : 09/18/18 Specimen Source : BLOOD Collected : 09/18/18 19:25 Singh [facility] Isolation : Emergency Room Received : 09/18/18 19:25 Requesting Physician : JACOB Patient/Specimen Tests and Comments Specimen Comments FINAL REPORT: No Growth at 5 Days Tech : Source : BLOOD ID # : [id number] FINAL Report Date : / / : Collected : 09/18/18 19:25 09/24/18.CORY. 09/24/18.CORY.COMPLETE Performed By: #### [id number] #### [facility],[address] [place] [address] CBC Collected: 09/18/2018 Status: F Source: [facility] 7:20 PM [facility] REPOSITORY TYPE CODE TESTS RESULT OUT OF RANGE REFERENCE UNITS LAB CBC(LOINC) CBC Result Comment: CBC-COMPLETE BLOOD COUNT LAB WBC(LOINC) 4.5 - 10.8 x 10EE3/UL WBC 10.1 LAB RBC(LOINC) 4.50 - x 10EE6/UL 6.00 RBC Low 4.07 LAB HEMOGLOBIN(LOINC 13.0 - g/dl ) 17.5 Low HEMOGLOBIN 11.3 LAB HEMATOCRIT(LOINC 40.0 - % ) 52.0 Low HEMATOCRIT 33.8 LAB MCV(LOINC) 81 - 98 fl MCV 83 LAB MCH(LOINC) 27 - 33 pg MCH 28 LAB MCHC(LOINC) 32 - 36 X10 3 MCHC 33 LAB RDW/CV(LOINC) 12.0 - % 15.6 RDW/CV High 16.1 LAB PLATELET(LOINC) 150 - 450 x10EE3/UL PLATELET 179 LAB MPV(LOINC) 6.4 - 10.5 fl MPV 10.0 Result Comment: AUTOMATED DIFFERENTIAL LAB NEUT %(LOINC) 46.0 - 76.0 % NEUT % High 84.3 LAB LYMPH %(LOINC) 20.0 - 45.0 % Low LYMPH % 5.6 LAB MONOS %(LOINC) 0.0 - 10.0 % MONOS % 8.4 LAB EO %(LOINC) 0.0 - 7.0 % EO % 1.0 LAB BASO %(LOINC) 0.0 - 2.0 % BASO % 0.7 LAB Lymph #(LOINC) 0.80 - 2.80 x10EE3/U Low L Lymph # 0.60 LAB Neut #(LOINC) 1.50 - 7.10 x10EE3/U L Neut # High 8.50 LAB [place] #(LOINC) 0.20 - 1.00 x10EE3/U L [place] # 0.90 LAB EO #(LOINC) 0.00 - 0.50 x10EE3/U L EO # 0.10 LAB Baso #(LOINC) 0.00 - 0.10 x10EE3/U L Baso # 0.10 LAB MANUAL DIFF(LOINC) MANUAL DIFF N/A LAB MORPHOLOGY(LOINC ) MORPHOLOGY N/A Result Comment: {CD] Performed By: #### [id number] #### [facility],[address] [place], [place] [id number] D-DIMER, QUANTITATIVE Collected: 09/18/2018 Status: F Source: [facility] 7:20 PM [facility] REPOSITORY TYPE CODE TESTS RESULT OUT OF REFERENCE UNITS RANGE LAB D-DIMER, QUANTITATI VE(LOINC) D-DIMER, QUANTITATIVE Result Comment: QUANT D-DIMER LAB D-DIMER 0 - 230 ng/ml QUANT(LOINC) High D-DIMER QUANT 297 Performed By: #### [id number] #### [place] [address] TROPONIN Collected: 09/18/2018 Status: F Source: [facility] 7:20 [facility] REPOSITORY TYPE CODE TESTS RESULT OUT OF REFERENCE UNITS RANGE LAB TROPONIN 0.00 - 0.05 ng/ml I(LOINC) TROPONIN I <0.01 Result Comment: Elevated troponin (above the 99th percentile) usually indicates myocardial ischemia. Results must be interpreted within the clinical setting. 1.Non-ischemic pathology can also cause elevated troponin levels (e.g., acute pulmonary embolism, myocarditis, pericarditis, heart failure, intracranial injury, rhabdomyolisis, sepsis, shock and renal insufficiency). 2.Approximately 1% of healthy adults have elevated troponin levels. 3.Analytical false positive results rarely occur(due to multiple interferences such as heterophile antibodies). Performed By: #### [id number] #### [place] [address] LACTATE Collected: 09/18/2018 Status: F Source: [facility] 7:20 [facility] REPOSITORY TYPE CODE TESTS RESULT OUT OF REFERENCE UNITS RANGE LAB LACTATE(KIYA 4.5 - 18.0 mg/dL NC) LACTATE 9.7 Performed By: #### [id number] #### [place] [address] CMP WITH EGFR Collected: 09/18/2018 Status: F Source: [facility] 7:[address] [place] [address] REPOSITORY TYPE CODE TESTS RESULT OUT OF RANGE REFERENCE UNITS LAB CMP with eGFR(LOINC) CMP with eGFR Result Comment: COMPREHENSIVE METABOLIC PANEL LAB SODIUM(LOINC) 136 - 145 mmol/l SODIUM 138 LAB POTASSIUM(LOINC) 3.5 - 5.1 mmol/L POTASSIUM 3.5 LAB CHLORIDE(LOINC) 98 - 107 mmol/L CHLORIDE 100 LAB CO2(LOINC) 21.0 - mmol/L 31.0 CO2 29.0 LAB GLUCOSE(LOINC) 74 - 106 mg/dl GLUCOSE High 125 LAB BUN(LOINC) 6 - 20 mg/dl BUN 20 LAB CREATININE(LOINC) 0.7 - 1.3 mg/dl CREATININE 1.2 LAB AST/SGOT(LOINC) 13 - 39 U/L AST/SGOT Low 12 LAB ALK PHOS(LOINC) 38 - 126 U/L ALK PHOS 51 LAB CALCIUM(LOINC) 8.6 - mg/dl 10.2 CALCIUM 9.3 LAB TOTAL 6.4 - 8.3 g/dl PROTEIN(LOINC) TOTAL PROTEIN 7.4 LAB ALBUMIN(LOINC) 3.4 - 4.8 g/dL ALBUMIN 3.8 LAB GLOBULIN(LOINC) 1.5 - 3.8 G/DL GLOBULIN 3.6 LAB A/G RATIO(LOINC) 0.9 - 1.6 A/G RATIO 1.1 LAB TOTAL BILI(LOINC) 0.0 - 1.5 mg/dl TOTAL BILI 0.5 LAB B/C RATIO(LOINC) 0 - 30 ratio B/C RATIO 17 LAB ALT/SGPT(LOINC) 10 - 40 U/L ALT/SGPT Low 6 LAB ANION GAP(LOINC) 10 - 20 mmol/L ANION GAP 13 LAB AGE(LOINC) years AGE 78 LAB eGFR(LOINC) 60 - 999 ML/MINUTE eGFR Low 58 LAB eGFR(AA)(LOINC) 60 - 999 ML/MINUTE eGFR(AA) >60 Result Comment: ACCORDING TO THE NATIONAL KIDNEY DISEASE EDUCATION PROGRAM(NKDE), A NORMAL eGFR IS A VALUE GREATER THAN OR EQUAL TO 60 ML/MIN/1.73 SQ METERS. CHRONIC KIDNEY DISEASE: <60mL/MIN/1.73 SQ METERS KIDNEY FAILURE: <15mL/MIN/1.73 SQ METERS THIS TEST SHOULD ONLY BE USED FOR PATIENTS 18 YEARS OF AGE AND OLDER. Performed By: #### [id number] #### [facility],[address] [place] [address] BNP (B-TYPE NATRIURETIC Collected: 09/18/2018 Status: F Source: [facility] PEPTIDE) 7:20 PM [facility] REPOSITORY TYPE CODE TESTS RESULT OUT OF RANGE REFERENCE UNITS LAB BNP(LOINC) 1 - 100 pg/ml BNP 85 Performed By: #### [id number] #### [facility],[address] [place] [address] CHEST 1 VIEW Observed: 09/18/2018 Status: F Source: [facility] 7:20 PM [facility] REPOSITORY [place] [address] [place], [place] [address] Patient: MARY RODRIGUEZ Phone#: : [phone] Age: 78 Gender: M Pt. Type: ER Account: [id number] Location: [facility] Ordering: JEISON JAMES Exam Date: 09/18/2018/19:09 Family Phys: KALPESH HORVATH Charge Code: [id number] Physician: Sequoyah Order #: [id number] DLP Dose#: PROCEDURE: X-RAY CHEST 1 VIEW COMPARISON: [facility], XR, CHEST 1 VIEW, 03/16/2018, 16:39. INDICATIONS: COPD FINDINGS: LUNGS: The lungs are hyperinflated bilateral lower lobe infiltrates versus chronic interstitial changes present and similar to prior exam. VASCULATURE: Normal. Unremarkable pulmonary vasculature. CARDIAC: Normal. No cardiac silhouette abnormality or cardiomegaly. MEDIASTINUM: Normal. No visible mass or adenopathy. PLEURA: Small right pleural effusion is present. BONES: Normal. No fracture or visible bony lesion. OTHER: Negative. CONCLUSION: 1. Bilateral lower lobe infiltrates consistent with recurrent versus persistent infiltrates versus chronic interstitial change. Dictated by: Rachel Chang MD on 09/20/2018 at 11:17 Approved by: Rachel Chang MD on 09/20/2018 at 11:17 Observed: 09/18/2018 Status: F Source: [facility] CULTURE BLOOD 7:20 PM [facility] REPOSITORY CULTURE BLOOD CULTURE BLOOD SET: 2 of 2 ANAEROBIC BOTTLE ONLY 24HOUR REPORT NEGATIVE 48HOUR REPORT NEGATIVE 72HOUR REPORT NEGATIVE M I C R O B I O L O G Y R E P O R T FINAL Antimicrobial Susceptibility and Organism Identification Report Specimen Number : [id number] Requested : 09/18/18 Specimen Source : BLOOD Collected : 09/18/18 19:20 [facility] Isolation : Med/Surg Received : 09/18/18 19:20 Requesting Physician : JACOB Patient/Specimen Tests and Comments Specimen Comments FINAL REPORT: No Growth at 5 Days Tech : Source : BLOOD ID # : [id number] FINAL Report Date : / / : Collected : 09/18/18 19:20 09/24/18.730.HEATHO. 09/24/18.CORY.COMPLETE Performed By: #### [id number] #### [facility] [place] [address] HISTORY AND PHYSICAL Observed: 09/18/2018 Status: F Source: [facility] 6:44 PM [facility] HISTORY & PHYSICAL NAME ACCOUNT SEX AGE ADMIT DISCHARGE PT MED. RECORD# NUMBER DATE DATE TYPE MARY RODRIGUEZ [id number] M 78 09/18/18 2 [id number] ROOM: 309 DATE OF : [birth year] DICTATING PHYSICIAN: Komal Caldera HISTORY & PHYSICAL/DISCHARGE SUMMARY CHIEF COMPLAINT: Cough, shortness of breath and wheezing. HISTORY OF PRESENT ILLNESS: The patient is a 78-year-old male presenting to the hospital with the aforementioned complaints. The patient does have some sputum production. His cough is mostly in the upper airway. He does not have active wheezing. The Emergency Department called for admission. Given his blood gas studies, including a pCO2 of 40, I informed him that he would meet observation criteria only. Since arriving to the medical floor, he states that he is doing much better with a modest dose of prednisone at 40 mg x1 that he has received. Daughter is present at the bedside. We discussed the disease process and the fact that he is going home today. PAST MEDICAL HISTORY: COPD, right inguinal hernia, and hypertension. PAST SURGICAL HISTORY: He also has a history of a tooth extraction. MEDICATIONS: The patient's home medical regimen includes Symbicort and Ventolin inhaler. The patient also takes Losartan 50 mg daily, atenolol 25 mg daily, and hydrochlorothiazide 25 mg daily. FAMILY HISTORY: Noncontributory to the present illness. SOCIAL HISTORY: He is a . Daughter presents with him. 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 He quit smoking at the age of 37. REVIEW OF SYSTEMS: Otherwise negative. PHYSICAL EXAMINATION VITAL SIGNS: He has a temperature of 98.8, pulse 100, respirations 16, and blood pressure 118/63. HEENT/NECK: The patient's head and neck examinations are unremarkable. LUNGS: He does have diminished breath sounds in all lung baird. No wheezing is noted. HEART: The patient's heart has a regular rate and rhythm. PMI cannot be palpated due Page 1 of 2 MARY RODRIGUEZ History & Physical to the widened AP diameter. ABDOMEN: Abdomen is soft and nontender. EXTREMITIES: The extremities are free of edema. IMPRESSION/PLAN: Mr. Rodriguez was placed on observation assignment for chronic obstructive pulmonary disease exacerbation. I see no evidence of systemic infection or pneumonia. He has responded nicely to prednisone 40 mg x1, and a tapering dose has been furnished for him and sent to [facility] in [place]. Care was discussed at the bedside with the patient and daughter. They are agreeable to the home-going plan. He will follow up with Dr. Kalpesh Horvath next week. Dictated By: Komal Caldera MD 09/19/18 10:43 JOB #: [id number] Transcribed By: honey 09/19/18 10:57 Electronically signed by: Warren Caldera M.D. 09/20/18 09:39 Update to H&P: [ ] No changes: I have examined the patient and reviewed the H&P and there are no changes. [ ] As previously dictated with the following changes: PHYSICIAN SIGNATURE: TIME: DATE: Page 2 of 2 MARY RODRIGUEZ History & Physical EMERGENCY REPORT Observed: 09/18/2018 Status: F [facility] EMERGENCY ROOM REPORT NAME ACCOUNT SEX AGE ADMIT DISCHARGE PT MED. RECORD# NUMBER DATE DATE TYPE MARY RODRIGUEZ [id number] M 78 09/18/18 2 [id number] ROOM: 309 DATE OF : 1940 DICTATING PHYSICIAN: Gerardo Dodd HISTORY OF PRESENT ILLNESS: The patient came in complaining of shortness of breath. He today has felt more short of breath. He has been feeling short of breath for the last couple of weeks. He went to his family doctor, who placed him on steroids for a couple of days, and then tonight he is on home oxygen at 2 liters. He increased it to 4 liters. When he came in, it was 88% and he was tachypneic. He denies any fevers or chills. He does have a cough, but he always has a cough. He has been using his inhalers more often and his breathing treatments more often. He presents to the Emergency Department with his daughter, who appears very caring and loving toward him. PAST MEDICAL HISTORY: The patient has a history of end-stage COPD, right inguinal hernia, hypertension, and dental extraction. REVIEW OF SYSTEMS: Ten systems were reviewed and were negative except as mentioned above. PHYSICAL EXAMINATION: He was afebrile. Initial pulse was 122, respirations 18, blood pressure 179/90, and pulse oximetry 88% on room air. Head is normocephalic, atraumatic. Eyes: Pupils are equal, round and reactive to light. Extraocular muscles are intact. Nares are patent. Throat has adequate oral moisture. Uvula is midline. Neck is supple without petechiae or rash. Heart rate is regular without murmur. S1 is equal to S2. No S3 or S4 appreciated. Lungs are clear to auscultation bilaterally. No rales, rhonchi or retractions. Abdomen is soft, nontender and nondistended. Skin is warm and dry. He is tachypneic. DIAGNOSTIC DATA: Blood gas showed a pH of 7.45, pCO2 of 40, and pO2 of 65. The patient had an EKG showing a rate of 107, normal axis, sinus tachycardia, and a right bundle branch block. No ST elevation or depression. His white count was 10,000. H&H were 11 and 38. Troponin was negative. Lactate was normal. His chest x-ray had a questionable right lower lobe infiltrate versus just hyperaeration and chronic changes. EMERGENCY DEPARTMENT COURSE AND TREATMENT: He was given multiple breathing treatments and still feels short of breath. He was placed on antibiotics and steroids. He will be admitted to the hospital under the care of Dr. Caldera. DIAGNOSES: 1. Chronic obstructive pulmonary disease exacerbation. Page 1 of 2 [facility] Emergency Room Report 2. Possible pneumonia. Dictated By: Gerardo Dodd DO 09/18/18 21:02 JOB #: [id number] Transcribed By: honey 09/19/18 09:27 Electronically signed by: JALIL Dodd D.O. 09/27/18 07:24 Page 2 of 2 [facility] Emergency Room Report EMERGENCY REPORT Observed: 04/23/2018 Status: F Source: [facility] 5:17 PM [facility] EMERGENCY ROOM REPORT NAME ACCOUNT SEX AGE ADMIT DISCHARGE PT MED. RECORD# NUMBER DATE DATE TYPE MARY R[facility]RIG[facility]Z [id number] M 78 04/21/18 04/21/18 3 [id number] ROOM: ER DATE OF : 1940 DICTATING PHYSICIAN: Faisal Traore HISTORY OF PRESENT ILLNESS: The patient came to the emergency room because he is having urinary retention. He has not been able to go to the bathroom since yesterday. He has not been dribbling. He has lower abdominal pain and distension. No vomiting or diarrhea. No fever or chills. No cough, congestion, shortness of breath. No difficulty breathing. He states his kidney function is normal. He denies any diarrhea. He states he has been going to the bathroom okay. PAST MEDICAL HISTORY: He states his major health problem is COPD. PHYSICAL EXAMINATION: He is pleasant, alert, and oriented. He has oxygen in place. He has COPD like breathing, but he states it is stable at this time. His lungs are diminished. There is minimal expiratory wheeze. He is talking in sentences. His heart rate and rhythm is regular. PMI is left breast. He is not overweight. Vital signs: 98.8 temporal scanning, 107 brachial pulse, 18 respirations, 173/117 blood pressure, 91% saturation. He has good radial pulses, femoral pulses, and no peripheral edema. His abdomen is soft. He has distension over the bladder. DIAGNOSTIC DATA: His laboratories were checked, because his last creatinine was 2 and today it is 1.1. EMERGENCY DEPARTMENT COURSE AND TREATMENT: A Knapp was placed and he had 6 to 700 mL of urine with relief of his discomfort. A leg bag was placed. He has Cipro at home. DIAGNOSIS: Acute urinary retention - recurrent. PLAN/DISPOSITION: He will be placed on Cipro for 3 days, and then he will follow up with his urologist. Dictated By: Faisal Traore DO 04/21/18 07:37 JOB #: [id number] Transcribed By: am 04/21/18 10:02 Electronically signed by: E-SIGN FAISAL TRAORE DO Page 1 of 2 [facility] Emergency Room Report 04/23/18 17:16 Page 2 of 2 [facility] Emergency Room Report URINALYSIS Collected: 04/21/2018 Status: F Source: [facility] 6:00 AM [facility] REPOSITORY TYPE CODE TESTS RESULT OUT OF REFERENCE UNITS RANGE LAB URINALYSIS (LOINC) URINALYSIS Result Comment: URINALYSIS LAB Specimen Type(LOINC) Specimen Type UNSPECIFIED LAB Color(LOINC) NORMAL: YELLOW Color yellow LAB Clarity(LOINC) NORMAL: CLEAR Clarity clear LAB ph(LOINC) NORMAL: 5.0-8.0 ph 5 LAB Protein(LOINC) NORMAL: NEGATIVE Protein NEG LAB Glucose(LOINC) NORMAL: NORMAL Glucose NORM LAB Ketone(LOINC) NORMAL: NEGATIVE Ketone NEG LAB Bilirubin(LOINC) NORMAL: NEGATIVE NEG Bilirubin LAB Blood(LOINC) NORMAL: NEGATIVE Blood 10 Abnormal LAB Urobilinog(LOINC NORMAL: ) NORMAL NORM Urobilinog LAB Sp NORMAL: Holly(LOINC) 1.010-1.030 Sp 1.015 Holly LAB Nitrite(LOINC) NORMAL: NEGATIVE Nitrite NEG LAB Leukocytes(LOINC NORMAL: ) NEGATIVE NEG Leukocytes LAB Microscopic(LOIN C) SEE Microscopic BELOW Result Comment: MICROSCOPIC LAB Wbc(LOINC) 0-5/hpf Wbc 1-5 LAB Rbc(LOINC) 0-3/hpf Rbc 0-5 LAB Casts(LOINC) Casts NONE LAB Crystals(LOINC) Crystals NONE LAB Amorphous(LOINC) Amorphous NONE LAB Bacteria(LOINC) Bacteria NONE LAB Epi Cells(LOINC) Epi Cells OCC LAB Mucous(LOINC) Mucous 1+ LAB Yeast(LOINC) Yeast NONE Performed By: #### [id number] #### [facility],[address] [place], [place] [id number] CBC Collected: 04/21/2018 Status: F Source: [facility] 6:00 AM [facility] REPOSITORY TYPE CODE TESTS RESULT OUT OF RANGE REFERENCE UNITS LAB CBC(LOINC) CBC Result Comment: CBC-COMPLETE BLOOD COUNT LAB WBC(LOINC) 4.5 - 10.8 x 10EE3/UL WBC Low 4.0 LAB RBC(LOINC) 4.50 - x 10EE6/UL 6.00 RBC Low 4.15 LAB HEMOGLOBIN(LOINC 13.0 - g/dl ) 17.5 Low HEMOGLOBIN 10.7 LAB HEMATOCRIT(LOINC 40.0 - % ) 52.0 Low HEMATOCRIT 32.1 LAB MCV(LOINC) 81 - 98 fl MCV Low 78 LAB MCH(LOINC) 27 - 33 pg MCH Low 26 LAB MCHC(LOINC) 32 - 36 X10 3 MCHC 33 LAB RDW/CV(LOINC) 12.0 - % 15.6 RDW/CV High 18.0 LAB PLATELET(LOINC) 150 - 450 x10EE3/UL PLATELET Low 113 LAB MPV(LOINC) 6.4 - 10.5 fl MPV 10.3 Result Comment: AUTOMATED DIFFERENTIAL LAB NEUT %(LOINC) 46.0 - % 76.0 NEUT % 63.7 LAB LYMPH %(LOINC) 20.0 - % Low 45.0 LYMPH % 19.5 LAB MONOS %(LOINC) 0.0 - 10.0 % MONOS % 11.1 High LAB EO %(LOINC) 0.0 - 7.0 % EO % 3.6 LAB BASO %(LOINC) 0.0 - 2.0 % BASO % 2.1 High LAB Lymph #(LOINC) 0.80 - x10EE3/ 2.80 UL Lymph # 0.80 LAB Neut #(LOINC) 1.50 - x10EE3/ 7.10 UL Neut # 2.60 LAB [place] #(LOINC) 0.20 - x10EE3/ 1.00 UL [place] # 0.40 LAB EO #(LOINC) 0.00 - x10EE3/ 0.50 UL EO # 0.10 LAB Baso #(LOINC) 0.00 - x10EE3/ 0.10 UL Baso # 0.10 LAB MANUAL DIFF(LOINC) MANUAL DIFF REVIEWED LAB MORPHOLOGY(LOIN C) MORPHOLOGY REVIEWED Result Comment: {CD] Performed By: #### [id number] #### [facility],[address] [place], [place] [id number] BMP WITH EGFR Collected: 04/21/2018 Status: F Source: [facility] 6:00 AM [facility] TYPE CODE TESTS RESULT OUT OF RANGE REFERENCE UNITS LAB BMP with eGFR(LOINC) BMP with eGFR Result Comment: BASIC METABOLIC PANEL LAB SODIUM(LOINC) 136 - 145 mmol/l SODIUM 140 LAB POTASSIUM(LOINC) 3.5 - 5.1 mmol/L POTASSIUM 4.0 LAB CHLORIDE(LOINC) 98 - 107 mmol/L CHLORIDE 101 LAB CO2(LOINC) 21.0 - mmol/L 31.0 CO2 High 31.6 LAB GLUCOSE(LOINC) 74 - 106 mg/dl GLUCOSE 86 LAB BUN(LOINC) 6 - 20 mg/dl BUN High 25 LAB CREATININE(LOINC) 0.7 - 1.3 mg/dl CREATININE 1.1 LAB CALCIUM(LOINC) 8.6 - mg/dl 10.2 CALCIUM 9.0 LAB ANION GAP(LOINC) 10 - 20 mmol/L ANION GAP 11 LAB AGE(LOINC) years AGE 78 LAB eGFR(LOINC) 60 - 999 ML/MINUTE eGFR >60 LAB eGFR(AA)(LOINC) 60 - 999 ML/MINUTE eGFR(AA) >60 Result Comment: ACCORDING TO THE NATIONAL KIDNEY DISEASE EDUCATION PROGRAM(NKDE), A NORMAL eGFR IS A VALUE GREATER THAN OR EQUAL TO 60 ML/MIN/1.73 SQ METERS. CHRONIC KIDNEY DISEASE: <60mL/MIN/1.73 SQ METERS KIDNEY FAILURE: <15mL/MIN/1.73 SQ METERS THIS TEST SHOULD ONLY BE USED FOR PATIENTS 18 YEARS OF AGE AND OLDER. Performed By: #### [id number] #### [facility],[address] [place], [place] [id number] EMERGENCY REPORT Observed: 04/02/2018 Status: F Source: [facility] 8:53 AM [facility] EMERGENCY ROOM REPORT NAME ACCOUNT SEX AGE ADMIT DISCHARGE PT MED. RECORD# NUMBER DATE DATE TYPE MARY R[facility]RIG[facility] [id number] M 78 03/27/18 03/27/18 3 [id number] ROOM: ER DATE OF : 1940 DICTATING PHYSICIAN: Gerardo Dodd CHIEF COMPLAINT/HISTORY OF PRESENT ILLNESS: Patient came in. Patient has had urinary retention and was in the hospital. They put a catheter in. He had it removed by Dr. Michelle yesterday at 3:00 and that is the last time he has urinated. He has pain. Denies any fevers, chills, nausea, vomiting. Still has a cough, he is getting over pneumonia which he is on oxygen right now. PAST MEDICAL HISTORY: He has a history of COPD, inguinal hernia, hypertension. PAST SURGICAL HISTORY: He has had dental extraction in the past. REVIEW OF SYSTEMS: Eight systems were reviewed and negative except as mentioned above. He is on a cephalosporin antibiotic. PHYSICAL EXAMINATION: Patient is afebrile, blood pressure 150/119, pulse 88, respirations 22, pulse ox 92% on 2 L. Head is normocephalic, atraumatic. Eyes: Pupils are equal, round, and reactive to light. Extraocular muscles are intact. Nares are patent. Throat has guttural moisture. Uvula is midline. Neck is supple without petechiae or rash. Heart without murmur. S1 equal to S2. No S3 or S4 appreciated. Lungs are clear to auscultation bilaterally. No rales, rhonchi, or retractions. Abdomen is soft, nontender, nondistended. Skin is warm and dry. He does have suprapubic fullness. EMERGENCY DEPARTMENT COURSE AND TREATMENT: We will place a catheter and this patient will be discharged home. DIAGNOSIS: Dictated By: Gerardo Dodd DO 03/27/18 06:58 JOB #: [id number] Transcribed By: alexandra 03/27/18 22:13 Electronically signed by: JALIL Dodd D.O. 04/02/18 08:52 Page 1 of 2 [facility] Emergency Room Report Page 2 of 2 TONEM[facility] STYLES Emergency Room Report PSA CANCER SCREENING Collected: 03/27/2018 Status: F Source: [facility] ([id number]) 7:10 AM [facility] REPOSITORY TYPE CODE TESTS RESULT OUT OF RANGE REFERENCE UNITS LAB PSA(LOINC) 0.00 - 4.00 ng/ml High PSA 7.67 Performed By: #### [id number] #### [facility],[address] [place] [id number] EMERGENCY REPORT Observed: 03/22/2018 Status: F Source: [facility] 10:01 AM [facility] EMERGENCY ROOM REPORT NAME ACCOUNT SEX AGE ADMIT DISCHARGE PT MED. RECORD# NUMBER DATE DATE TYPE MARY [facility]RIG[facility]Z [id number] M 78 03/16/18 1 [id number] ROOM: 303 DATE OF : 1940 DICTATING PHYSICIAN: Gerardo Dodd HISTORY OF PRESENT ILLNESS: The patient came in acutely short of breath. His pulse ox was in the 50s. He said he was not feeling good. He had a runny nose. He had a cough. He went to his doctor, and then on the way back from the doctors he got shaky, weak, and short of breath and presents to the emergency department. PAST MEDICAL HISTORY: He has a history of hypertension, COPD. PAST SURGICAL HISTORY: He denies any surgeries. SOCIAL HISTORY: He is a former smoker. He occasionally drinks alcohol. He is here with family members who appear concerned about him. REVIEW OF SYSTEMS: Ten systems reviewed and negative except as mentioned above. PHYSICAL EXAMINATION: He is an awake, alert, and oriented male in acute respiratory distress. He was tachypneic. His pulse ox was 52%. He is afebrile. Blood pressure 176/110. Head is normocephalic and atraumatic. Eyes: Pupils are equal, round, and reactive to light. Extraocular muscles intact. Nares are patent. Throat has adequate moisture. Uvula is midline. Neck is supple without petechiae or rash. Heart without murmur. S1 equals S2. No S3 or S4 appreciated. Lungs have diminished breath sounds with occasional wheeze. Abdomen is soft, nontender, and nondistended. Skin is warm and dry. DIAGNOSTIC DATA: His chest x-ray shows bilateral infiltrates. He has a white count of 17,000. His BNP was 209. His EKG shows a rate of 118, right axis deviation, and right bundle branch block. His first EKG showed a rate of 107. It was difficult because he was short of breath and it was shaking. EMERGENCY DEPARTMENT COURSE AND TREATMENT: He is doing better at this time. DIAGNOSES: 1. Chronic obstructive pulmonary disease exacerbation. 2. Pneumonia. 3. Sepsis. Page 1 of 2 [facility] Emergency Room Report PLAN/DISPOSITION: He was given Solu-Medrol, Rocephin, and Zithromax. He will be admitted to the hospital under the care of Dr. Smart. Critical Care time was 35 minutes excluding billable procedures. He does not want to be intubated. Dictated By: Gerardo Dodd DO 03/16/18 18:34 JOB #: [id number] Transcribed By: am 03/17/18 09:15 Electronically signed by: JALIL Dodd D.O. 03/22/18 09:59 Page 2 of 2 [facility] Emergency Room Report DISCHARGE SUMMARY Observed: 03/21/2018 Status: F Source: [facility] 6:40 PM [facility] DISCHARGE SUMMARY NAME ACCOUNT SEX AGE ADMIT DISCHARGE PT MED. RECORD# NUMBER DATE DATE TYPE MARY [facility]IG[facility]Z [id number] M 78 03/16/18 03/21/18 1 [id number] ROOM: 303 DATE OF : 1940 DICTATING PHYSICIAN: Diamond Smart FINAL DIAGNOSES: 1. Community-acquired pneumonia, bilateral lower lobe. 2. Chronic obstructive pulmonary disease exacerbation. 3. Hypoxia. 4. Urinary retention. 5. Iron-deficiency anemia. DIAGNOSTIC DATA: Studies obtained this hospital stay: (1) Chest x-ray on March 16, 2018, showed bilateral lower lobe infiltrates. (2) Kidney and bladder ultrasound on March 20, 2018, showed normal renal parenchymal echogenicity and no hydronephrosis. On the day of discharge, WBC was 5.9, hemoglobin 9.7, hematocrit 29.9, sodium 140, potassium 3.6, BUN 21, creatinine 1.2, and glucose 83. Other significant laboratory data this hospital stay: Admission white cell count was 17.4. Initial lactate was 21.6. Follow-up lactate was 7.9. BNP was 209. Total iron was 14 and TIBC 333 with iron saturation of 4%. Vitamin B12 level was 338. Folate level was 12.2. There was a minimal troponin increase to 0.06. A1c was 6.2%. Creatinine ranged between 0.9 and 1.2, except for March 20 the BUN was 27 and creatinine 2 with potassium of 3.4, and the patient complained of back pain at that moment requiring Knapp catheter insertion. Hemoccult stools were negative. Blood cultures were negative. Sputum culture showed a few gram-positive cocci in chains. Mycoplasma titer was negative. HOSPITAL COURSE: Earlier today, the patient was feeling good. He denies any chest pain. No shortness of breath. No back pain. Blood pressure is 142/75, heart rate 94, respiratory rate 17, temperature 98.8, and oxygen saturation 91-92% on 2 liters nasal cannula. Weight is 174 pounds with a body mass index of 21.19 kg/m2. Skin is warm and dry. Neck is supple. No nodes. No masses. No JVD. Lungs are symmetrical with equal lung expansion, diminished breath sounds bilaterally, clear to auscultation. Respiratory effort is normal. Heart is a regular rate and rhythm. Abdomen is soft and nontender. Extremities with no edema. Neurologic: The patient was alert and oriented x3. 1. Bilateral lower lobe infiltrates. The patient was admitted to the medical-surgical floor. Cultures were obtained, and he was started on Rocephin and Zithromax in addition to oxygen supplementation, DuoNebs, incentive spirometry and Acapella. He gradually improved from that point of view. He was afebrile. White cell count normalized, and he was discharged home on Ceftin for 7 more days. 2. Chronic obstructive pulmonary disease exacerbation. The patient received one dose of Solu-Medrol in the Emergency Room. He needed oxygen supplementation, DuoNeb, incentive spirometry and Acapella, and he gradually improved although continued to require oxygen supplementation. He was discharged home with oxygen 2 liters per nasal cannula to Page 1 of 2 [facility] Discharge Summary be evaluated as an outpatient. 3. Hypoxemia. As mentioned above, the patient required oxygen supplementation to keep his oxygen saturation greater than 90%, and that may be weaned off as an outpatient. 4. Urinary retention. On March 20, the patient's BUN was 27 and creatinine 2, and he was complaining of back pain. Post-void residual was greater than 700 mL. A Knapp catheter was inserted, and the patient was started on Flomax 0.4 mg daily. He was given IV fluids. BUN and creatinine normalized by the next morning, and his back pain resolved. I discharged the patient with the Knapp catheter in place, and he was advised to follow up with Dr. Willis as an outpatient with consideration to remove the catheter in 10-14 days and to continue to use the Flomax for that period of time. If that is not successful, then further urological evaluation will be needed. 5. Iron-deficiency anemia with iron saturation of only 4%. I discussed this finding with the patient and his daughter, and he was advised that further GI evaluation will be needed to rule out the possibility for malignancy. He is to discuss this issue with his primary care physician to arrange for a suitable referral for that purpose. 6. The rest of the medical problems were stable at the time of this admission. We will monitor. Total time spent discharging this patient was greater than 40 minutes. The above was discussed with the patient and his daughter at the bedside in great detail. All questions were answered, and they expressed understanding of the plan of care. MEDICATIONS ON DISCHARGE: (1) Tamsulosin 0.4 mg daily. (2) Ceftin 250 mg one tablet p.o. twice a day for 7 days. (3) Continue the rest of the medications as before admission. DISCHARGE INSTRUCTIONS/PLAN: Destination: Home. Activity: No restrictions. Diet: Regular, high-fiber, [id number]-akik diet. Follow up with Dr. Kalpesh Hovrath on March 25, 2018, at 8:50 a.m. Also, the patient was advised to schedule an appointment to see Dr. Willis, the urologist, to evaluate the urinary retention. The patient was advised that he has iron-deficiency anemia and to consider doing further GI evaluation to rule out malignancy/cancer. Oxygen 2 liters per nasal cannula 26/05 until the hypoxia improves. The patient was advised to return to the Emergency Room if he has a temperature of greater than 100.4. Dictated By: Diamond Smart MD 03/21/18 11:12 JOB #: [id number] Transcribed By: honey 03/21/18 14:48 Electronically signed by: Warren Smart M.D. 03/21/18 18:40 Page 2 of 2 [facility] Discharge Summary CBC Collected: 03/21/2018 Status: F Source: [facility] 4:53 AM [facility] REPOSITORY TYPE CODE TESTS RESULT OUT OF RANGE REFERENCE UNITS LAB CBC(LOINC) CBC Result Comment: CBC-COMPLETE BLOOD COUNT LAB WBC(LOINC) 4.5 - 10.8 x 10EE3/UL WBC 5.9 LAB RBC(LOINC) 4.50 - x 10EE6/UL 6.00 RBC Low 3.89 LAB HEMOGLOBIN(LOINC 13.0 - g/dl ) 17.5 Low HEMOGLOBIN 9.7 LAB HEMATOCRIT(LOINC 40.0 - % ) 52.0 Low HEMATOCRIT 29.9 LAB MCV(LOINC) 81 - 98 fl MCV Low 77 LAB MCH(LOINC) 27 - 33 pg MCH Low 25 LAB MCHC(LOINC) 32 - 36 X10 3 MCHC 32 LAB RDW/CV(LOINC) 12.0 - % 15.6 RDW/CV High 18.0 LAB PLATELET(LOINC) 150 - 450 x10EE3/UL PLATELET 171 LAB MPV(LOINC) 6.4 - 10.5 fl MPV 9.1 Result Comment: AUTOMATED DIFFERENTIAL LAB NEUT %(LOINC) 46.0 - 76.0 % NEUT % 71.1 LAB LYMPH %(LOINC) 20.0 - 45.0 % Low LYMPH % 12.7 LAB MONOS %(LOINC) 0.0 - 10.0 % MONOS % High 12.7 LAB EO %(LOINC) 0.0 - 7.0 % EO % 2.6 LAB BASO %(LOINC) 0.0 - 2.0 % BASO % 0.9 LAB Lymph #(LOINC) 0.80 - 2.80 x10EE3/U Low L Lymph # 0.70 LAB Neut #(LOINC) 1.50 - 7.10 x10EE3/U L Neut # 4.20 LAB [place] #(LOINC) 0.20 - 1.00 x10EE3/U L [place] # 0.80 LAB EO #(LOINC) 0.00 - 0.50 x10EE3/U L EO # 0.20 LAB Baso #(LOINC) 0.00 - 0.10 x10EE3/U L Baso # 0.10 LAB MANUAL DIFF(LOINC) MANUAL DIFF N/A LAB MORPHOLOGY(LOINC ) MORPHOLOGY N/A Result Comment: {CD] Performed By: #### [id number] #### [facility],[address] [place] [address] BMP WITH EGFR Collected: 03/21/2018 Status: F Source: [facility] 4:53 AM [facility] REPOSITORY TYPE CODE TESTS RESULT OUT OF RANGE REFERENCE UNITS LAB BMP with eGFR(LOINC) BMP with eGFR Result Comment: BASIC METABOLIC PANEL LAB SODIUM(LOINC) 136 - 145 mmol/l SODIUM 140 LAB POTASSIUM(LOINC) 3.5 - 5.1 mmol/L POTASSIUM 3.6 LAB CHLORIDE(LOINC) 98 - 107 mmol/L CHLORIDE 105 LAB CO2(LOINC) 21.0 - mmol/L 31.0 CO2 28.1 LAB GLUCOSE(LOINC) 74 - 106 mg/dl GLUCOSE 83 LAB BUN(LOINC) 6 - 20 mg/dl BUN High 21 LAB CREATININE(LOINC) 0.7 - 1.3 mg/dl CREATININE 1.2 LAB CALCIUM(LOINC) 8.6 - mg/dl 10.2 CALCIUM 8.9 LAB ANION GAP(LOINC) 10 - 20 mmol/L ANION GAP 11 LAB AGE(LOINC) years AGE 78 LAB eGFR(LOINC) 60 - 999 ML/MINUTE eGFR Low 58 LAB eGFR(AA)(LOINC) 60 - 999 ML/MINUTE eGFR(AA) >60 Result Comment: ACCORDING TO THE NATIONAL KIDNEY DISEASE EDUCATION PROGRAM(NKDE), A NORMAL eGFR IS A VALUE GREATER THAN OR EQUAL TO 60 ML/MIN/1.73 SQ METERS. CHRONIC KIDNEY DISEASE: <60mL/MIN/1.73 SQ METERS KIDNEY FAILURE: <15mL/MIN/1.73 SQ METERS THIS TEST SHOULD ONLY BE USED FOR PATIENTS 18 YEARS OF AGE AND OLDER. Performed By: #### [id number] #### [facility],[address] [place], [place] [id number] Observed: 03/20/2018 Status: F Source: [facility] CULTURE SPUTUM 4:16 PM [facility] REPOSITORY CULTURE SPUTUM _SPUTUM CULTURE_ SPUTUM SPECIMEN EXAMINATION SPUTUM ACCEPTABLE ? GRAM STAIN AMOUNT AND DESCRIPTION _FEW_GRAM_POSITIVE_COCCI_IN_CHAINS 03/20/18.1719.JLN. M I C R O B I O L O G Y R E P O R T FINAL Antimicrobial Susceptibility and Organism Identification Report Specimen Number : [id number] Requested : 03/20/18 Specimen Source : SPUTUM Collected : 03/20/18 16:16 Singh of Isolation : Med/Surg Received : 03/20/18 16:16 Requesting Physician : BING Patient/Specimen Tests and Comments Specimen Comments FINAL REPORT: MIXED KANG NO PATHOGENS PRESENT Tech : Source : SPUTUM ID # : [id number] FINAL Report Date : / / : Collected : 03/20/18 16:16 03/22/18.1211.BKO. 03/21/18.1303.BKO. 03/22/18.1211.BKO.COMPLETE Performed By: #### [id number] #### [facility],[address] [place] [address] URINALYSIS Collected: 03/20/2018 Status: F Source: [facility] 3:52 PM [facility] REPOSITORY TYPE CODE TESTS RESULT OUT OF REFERENCE UNITS RANGE LAB URINALYSIS (LOINC) URINALYSIS Result Comment: URINALYSIS LAB Specimen Type(LOINC) Specimen Type Knapp LAB Color(LOINC) NORMAL: YELLOW Color yellow LAB Clarity(LOINC) NORMAL: CLEAR Clarity clear LAB ph(LOINC) NORMAL: 5.0-8.0 ph 5 LAB Protein(LOINC) NORMAL: NEGATIVE Protein Abnormal 15 LAB Glucose(LOINC) NORMAL: NORMAL Glucose NORM LAB Ketone(LOINC) NORMAL: NEGATIVE Ketone NEG LAB Bilirubin(LOINC) NORMAL: NEGATIVE Bilirubin NEG LAB Blood(LOINC) NORMAL: NEGATIVE Blood Abnormal 150 LAB Urobilinog(LOINC) NORMAL: NORMAL Urobilinog NORM LAB Sp Holly(LOINC) NORMAL: 1.010-1.030 Sp Holly 1.015 LAB Nitrite(LOINC) NORMAL: NEGATIVE Nitrite NEG LAB Leukocytes(LOINC) NORMAL: NEGATIVE Leukocytes NEG LAB Microscopic(LOINC ) Microscopic SEE BELOW Result Comment: MICROSCOPIC LAB Wbc(LOINC) 0-5/hpf Wbc 1-5 LAB Rbc(LOINC) 0-3/hpf Rbc 15-20 LAB Casts(LOINC) Casts NONE LAB Crystals(LOINC) Crystals NONE LAB Amorphous(LOINC) Amorphous NONE LAB Bacteria(LOINC) Bacteria TRACE LAB Epi Cells(LOINC) Epi Cells NONE LAB Mucous(LOINC) Mucous NONE LAB Yeast(LOINC) Yeast NONE Performed By: #### [id number] #### [facility],[address] [place] [address] KIDNEY / BLADDER Observed: 03/20/2018 Status: F Source: [facility] 2:21 PM [place] [address] Patient: MARY RODRIGUEZ Phone#: : [phone] Age: 78 Gender: M Pt. Type: In Account: [id number] Location: [facility] Ordering: DIAMOND SMART Exam Date: 03/20/2018/11:42 Family Phys: KOMAL CISNEROS Charge Code: 214430 Physician: Sequoyah Order #: [id number] DLP Dose#: PROCEDURE: KIDNEY/BLADDER ULTRASOUND COMPARISON: None. INDICATIONS: Elevated Renal Labs TECHNIQUE: Ultrasound examination was performed of the kidneys and bladder. FINDINGS: RIGHT KIDNEY: Normal. Age-appropriate size and echotexture. Right kidney size 11.5 x 4.6 x 7.3 cm. No obstruction. There is a right renal cyst versus prominent pyramid measuring 1.0 x 0.6 x 1.1 cm LEFT KIDNEY: Normal. Age-appropriate size and echotexture. Left kidney size 11.7 x 6.6 x 5.8 cm. No mass or obstruction. BLADDER: Urinary bladder is decompressed OTHER: Negative. CONCLUSION: 1. Normal renal parenchymal echogenicity. No hydronephrosis. Dictated by: Shanthi Gauthier MD on 03/20/2018 at 14:32 Approved by: Shanthi Gauthier MD on 03/20/2018 at 14:32 PROGRESS NOTE Observed: 03/20/2018 Status: F Source: [facility] 12:29 PM [facility] PROGRESS NOTE NAME ACCOUNT SEX AGE ADMIT DISCHARGE PT MED. RECORD# NUMBER DATE DATE MARY ROLLE [id number] Scott 78 03/16/18 1 [id number] ROOM: 303 DATE OF : 1940 DICTATING PHYSICIAN: Diamond Smart DATE OF SERVICE: March 20, 2018 SUBJECTIVE: Events noted. The patient had back pain yesterday. Topical analgesic cream was given. Today, the patient feels fairly well. He continued to be hypoxic on room air, and he was noted to have significant elevation of the creatinine from 0.9 up to 2. He tells me that he has not been urinating as well today. OBJECTIVE: No acute distress. He is lying down in bed comfortably. Blood pressure is 146/73, heart rate 94, respiratory rate 18, temperature 99, and oxygen saturation 88% on room air and 92% on 1 liter nasal cannula. Skin is warm and dry. Neck is supple. No nodes. No masses. No JVD. Lungs are symmetrical with equal lung expansion and diminished breath sounds bilaterally, clear to auscultation. Respiratory effort is normal. Heart is a regular rate and rhythm. Abdomen is soft and nontender. Back with no flank tenderness. Extremities with no edema. Neurologic: The patient was alert and oriented x3. DIAGNOSTIC DATA: WBC is 11.8, hemoglobin 10.9, hematocrit 34.4, and platelet count 191,000. Sodium is 139, potassium 3.4, BUN 27, creatinine 2, and glucose 106. ASSESSMENT/PLAN: 1. Acute renal failure with elevated BUN and creatinine of unclear etiology. We will check a bladder scan after voiding and consider putting a Knapp catheter in if he has residual of more than 100 mL. Also, we will obtain an ultrasound of the kidney and bladder and will start the patient on IV fluids with potassium supplementation and recheck laboratories later on. 2. Chronic obstructive pulmonary disease with mild exacerbation, improved. 3. Acute community-acquired pneumonia, multilobe, gradually improving. He continued to be hypoxic on room air. He may need to go home with home oxygen. The above was discussed with the patient and his daughter at the bedside in detail. All questions were answered, and they expressed understanding of the plan of care. Dictated By: Diamond Smart MD 03/20/18 10:21 JOB #: [id number] Transcribed By: honey 03/20/18 11:16 Electronically signed by: Warren Smart M.D. 03/20/18 12:29 Page 1 of 1 MARY RODRIGUEZ Progress Note CBC Collected: 03/20/2018 Status: F Source: [facility]AL RAMIREZ 4:25 AM [facility] REPOSITORY TYPE CODE TESTS RESULT OUT OF RANGE REFERENCE UNITS LAB CBC(LOINC) CBC Result Comment: CBC-COMPLETE BLOOD COUNT LAB WBC(LOINC) 4.5 - 10.8 x 10EE3/UL WBC High 11.8 LAB RBC(LOINC) 4.50 - x 10EE6/UL 6.00 RBC Low 4.44 LAB HEMOGLOBIN(LOINC 13.0 - g/dl ) 17.5 Low HEMOGLOBIN 10.9 LAB HEMATOCRIT(LOINC 40.0 - % ) 52.0 Low HEMATOCRIT 34.4 LAB MCV(LOINC) 81 - 98 fl MCV Low 77 LAB MCH(LOINC) 27 - 33 pg MCH Low 24 LAB MCHC(LOINC) 32 - 36 X10 3 MCHC 32 LAB RDW/CV(LOINC) 12.0 - % 15.6 RDW/CV High 18.1 LAB PLATELET(LOINC) 150 - 450 x10EE3/UL PLATELET 191 LAB MPV(LOINC) 6.4 - 10.5 fl MPV 9.7 Result Comment: AUTOMATED DIFFERENTIAL LAB NEUT %(LOINC) 46.0 - 76.0 % NEUT % High 87.7 LAB LYMPH %(LOINC) 20.0 - 45.0 % Low LYMPH % 3.1 LAB MONOS %(LOINC) 0.0 - 10.0 % MONOS % 9.0 LAB EO %(LOINC) 0.0 - 7.0 % EO % 0.1 LAB BASO %(LOINC) 0.0 - 2.0 % BASO % 0.1 LAB Lymph #(LOINC) 0.80 - 2.80 x10EE3/U Low L Lymph # 0.40 LAB Neut #(LOINC) 1.50 - 7.10 x10EE3/U L Neut # High 10.30 LAB [place] #(LOINC) 0.20 - 1.00 x10EE3/U L [place] # High 1.10 LAB EO #(LOINC) 0.00 - 0.50 x10EE3/U L EO # 0.00 LAB Baso #(LOINC) 0.00 - 0.10 x10EE3/U L Baso # 0.00 LAB MANUAL DIFF(LOINC) MANUAL DIFF N/A LAB MORPHOLOGY(LOINC ) MORPHOLOGY N/A Result Comment: {CD] Performed By: #### [id number] #### [facility],[address] [place] [address] BMP WITH EGFR Collected: 03/20/2018 Status: F Source: RAFAL NIETOJONNATHAN 4:25 AM [facility] REPOSITORY TYPE CODE TESTS RESULT OUT OF RANGE REFERENCE UNITS LAB BMP with eGFR(LOINC) BMP with eGFR Result Comment: BASIC METABOLIC PANEL LAB SODIUM(LOINC) 136 - 145 mmol/l SODIUM 139 LAB POTASSIUM(LOINC) 3.5 - 5.1 mmol/L Low POTASSIUM 3.4 LAB CHLORIDE(LOINC) 98 - 107 mmol/L CHLORIDE 102 LAB CO2(LOINC) 21.0 - mmol/L 31.0 CO2 27.6 LAB GLUCOSE(LOINC) 74 - 106 mg/dl GLUCOSE 106 LAB BUN(LOINC) 6 - 20 mg/dl BUN High 27 LAB CREATININE(LOINC) 0.7 - 1.3 mg/dl High CREATININE 2.0 LAB CALCIUM(LOINC) 8.6 - mg/dl 10.2 CALCIUM 9.6 LAB ANION GAP(LOINC) 10 - 20 mmol/L ANION GAP 13 LAB AGE(LOINC) years AGE 78 LAB eGFR(LOINC) 60 - 999 ML/MINUTE eGFR Low 32 LAB eGFR(AA)(LOINC) 60 - 999 ML/MINUTE eGFR(AA) Low 39 Result Comment: ACCORDING TO THE NATIONAL KIDNEY DISEASE EDUCATION PROGRAM(NKDE), A NORMAL eGFR IS A VALUE GREATER THAN OR EQUAL TO 60 ML/MIN/1.73 SQ METERS. CHRONIC KIDNEY DISEASE: <60mL/MIN/1.73 SQ METERS KIDNEY FAILURE: <15mL/MIN/1.73 SQ METERS THIS TEST SHOULD ONLY BE USED FOR PATIENTS 18 YEARS OF AGE AND OLDER. Performed By: #### [id number] #### [facility],[address] [place], [place] [id number] PROGRESS NOTE Observed: 03/19/2018 Status: F Source: RAFALMIKAYLA NIETOJONNATHAN 7:41 PM [facility] REPOSITORY [facility] PROGRESS NOTE NAME ACCOUNT SEX AGE ADMIT DISCHARGE PT MED. RECORD# NUMBER DATE DATE TYPE MARY RODRIGUEZ [id number] M 78 03/16/18 1 [id number] ROOM: 303 DATE OF : 1940 DICTATING PHYSICIAN: Diamond Smart DATE OF SERVICE: March 19, 2018 SUBJECTIVE: The patient has a moist cough. He states he does have a chronic cough. He has had no increasing shortness of breath. His daughter is present at the visit. He has not had a colonoscopy in the past. Update from nursing staff. OBJECTIVE: Blood pressure 125/69, heart rate 85, respirations 20, temperature 98.1, oxygen saturation 97% on 2 liters. This is a well-nourished, well-developed male in no acute distress who is alert, pleasant, and cooperative. HEENT: Revealed a hoarse voice. Neck is supple. No JVD. Lungs: Normal respiratory effort on oxygen support, equal lung expansion, diminished breath sounds bilaterally. No rhonchi or wheezing. Heart: Regular rate and rhythm. Extremities: Free of edema. Neurologic: He is alert and oriented. Mood, affect, and memory within normal limits DIAGNOSTIC DATA: Laboratory data: Reviewed and on chart. ASSESSMENT/PLAN: 1. Sepsis - resolved. 2. Acute community acquired pneumonia, multilobe. Improving on broad spectrum IV antibiotics, incentive spirometry, Acapella, and DuoNeb treatments. We will attempt to wean oxygen today. 3. Chronic obstructive pulmonary disease - mild exacerbation. He received 1 dose of Solu-Medrol. Steroid therapy has been avoided and he has no increase in wheezing and he is improving. Encourage incentive spirometry, Acapella, and we will attempt to wean oxygen with pulse ox above or equal to 90%. 4. Severe iron-deficiency anemia. This was discussed with the patient and the daughter. He has not had a colonoscopy in the past. He states he has chronic hemorrhoids. Recommend evaluation as an outpatient for colonoscopy. He will consider. 5. Possible discharge home tomorrow if stable. Above was discussed with the patient and his daughter at the bedside. All of their questions were answered. They verbalized understanding of the plan. Dictated by joselin Sanford for Diamond Smart M.D. Page 1 of 2 MICHAEL MARY Progress Note I personally evaluated and examined the patient and agree with above note that reflects my visit to the patient and my decision making. Diamond Smart MD 03/19/18 11:23 JOB #: [id number] Transcribed By: am 03/19/18 12:27 Electronically signed by: Warren Smart M.D. 03/19/18 19:41 Page 2 of 2 MARY RODRIGUEZ Progress Note PROGRESS NOTE Observed: 03/18/2018 Status: F Source: [facility] 12:41 PM [facility] PROGRESS NOTE NAME ACCOUNT SEX AGE ADMIT DISCHARGE PT MED. RECORD# NUMBER DATE DATE TYPE MARY RODRIGUEZ [id number] Scott 78 03/16/18 1 [id number] ROOM: 303 DATE OF : 1940 DICTATING PHYSICIAN: Diamond Smart DATE OF SERVICE: 03/18/18 SUBJECTIVE: The patient is feeling fairly well. He has more cough today but less short of breath. The cough is productive. OBJECTIVE: No acute distress. Laying down in bed comfortably. Blood pressure 109/58, heart rate 99, respiratory rate 18, temperature 98.6, oxygen saturation 96% on 4 liters nasal cannula. Weight 175 pounds with a body mass index of 21.30 kg/m2. Skin: Warm and dry. Neck: Supple. No nodes. No masses. No JVD. Lungs: Symmetrical equal lung expansion. Diminished breath sounds bilaterally. Rare crackles in both lung baird. Respiratory effort normal. Heart: Regular rate and rhythm. Extremities: No edema. DIAGNOSTIC DATA: Laboratory data: WBC is 11.7. Hemoglobin 9.8, hematocrit 30.4. Total iron 14. TIBC 333 with iron saturation of 4%. B12 level 338. Folate level 12.2. A1c 6.2%. Sodium 138, potassium 3.8, BUN 21, creatinine 0.9. Glucose 94. ASSESSMENT AND PLAN: 1. Acute community acquired pneumonia, clinically improving. The patient continued to require oxygen supplementation. Will continue Rocephin and Zithromax, DuoNeb treatments, incentive spirometry and acapella and monitor progress. 2. Chronic obstructive pulmonary disease with mild exacerbation, secondary to community acquired pneumonia. He received 1 dose of Solu- Medrol in the emergency room. Will try to avoid steroid therapy. Will continue antibiotics, DuoNebs, incentive spirometry and acapella and will consider starting steroid therapy if needed. 3. Hyperglycemia. A1c normal. Will monitor blood sugars periodically. 4. Severe iron deficiency anemia. Further workup is indicated when the patient is more stable. Dictated By: Diamond Smart MD 03/18/18 09:29 JOB #: [id number] Transcribed By: daniel 03/18/18 10:17 Electronically signed by: Page 1 of 2 MARY RODRIGUEZ Note E.Sign Dr.Butros Bing Winters 03/18/18 12:41 Page 2 of 2 MARY RODRIGUEZ Progress Note URINALYSIS Collected: 03/18/2018 Status: F Source: [facility] 7:54 AM [facility] REPOSITORY TYPE CODE TESTS RESULT OUT OF REFERENCE UNITS RANGE LAB URINALYSIS (LOINC) URINALYSIS Result Comment: URINALYSIS LAB Specimen Type(LOINC) Specimen Void Type LAB Color(LOINC) NORMAL: YELLOW Color p.yel LAB Clarity(LOINC) NORMAL: CLEAR Clarity clear LAB ph(LOINC) NORMAL: 5.0-8.0 ph 5 LAB Protein(LOINC) NORMAL: NEGATIVE Protein NEG LAB Glucose(LOINC) NORMAL: NORMAL Glucose NORM LAB Ketone(LOINC) NORMAL: NEGATIVE Ketone NEG LAB Bilirubin(LOINC) NORMAL: NEGATIVE Bilirubin NEG LAB Blood(LOINC) NORMAL: NEGATIVE Blood NEG LAB Urobilinog(LOINC) NORMAL: NORMAL Urobilinog NORM LAB Sp Holly(LOINC) NORMAL: 1.010-1.030 Sp Holly 1.010 LAB Nitrite(LOINC) NORMAL: NEGATIVE Nitrite NEG LAB Leukocytes(LOINC) NORMAL: NEGATIVE Leukocytes NEG LAB Microscopic(LOINC ) Microscopic NOT INDICATED Performed By: #### [id number] #### [facility],[address] [place] [address] LEGIONELLA ANTIGEN Collected: 03/18/2018 Status: F Source: [facility] URINE 7:54 [facility] REPOSITORY TYPE CODE TESTS RESULT OUT OF REFERENCE UNITS RANGE LAB LEGIONELLA ANTIGEN URINE(LOINC) LEGIONELLA ANTIGEN URINE Result Comment: _LEGIONELLA ANTIGEN URINE_ LEGIONELLA ANTIGEN, URINE, EIA Reported: 03/22/2018 04:34 Status=F TEST RESULT FLAG RANGE UNITS LEGIONELLA AG, EIA, URINE Not Detected Not Detected 03/22/18.0446.[facility] .[id number] This assay is specific for Legionella pneumophila serogroup 1 which causes more than 50% of all Legionella infections. This assay will not detect infections caused by other Legionella species/serogrps. Antigenuria may persist for prolonged periods of time. Legionella pneumophila serogroup 1 antigen can be detected in urine within 2-3 days of infection and may persist even after treatment. This assay does not detect other Legionella species or serogroups. Test Performed by [facility], [facility], [address] [place] [id number] Fareed Lira M.D., Ph.D., Director of Laboratories , [facility] [id number] Performed By: #### [id number] #### [facility],[address] [place] [address] OCCULT BLOOD STOOL (3 Collected: 03/18/2018 Status: F Source: [facility] SPECIMENS) 7:53 AM [facility] REPOSITORY TYPE CODE TESTS RESULT OUT OF REFERENCE UNITS RANGE LAB OCCULT BLOOD [NEGATIVE STOOL(LOINC) OCCULT NOT BLOOD STOOL COLLE Performed By: #### [id number] #### [place] [id number] CBC Collected: 03/18/2018 Status: F Source: [facility] 5:10 AM [facility] REPOSITORY TYPE CODE TESTS RESULT OUT OF RANGE REFERENCE UNITS LAB CBC(LOINC) CBC Result Comment: CBC-COMPLETE BLOOD COUNT LAB WBC(LOINC) 4.5 - 10.8 x 10EE3/UL WBC High 11.7 LAB RBC(LOINC) 4.50 - x 10EE6/UL 6.00 RBC Low 3.91 LAB HEMOGLOBIN(LOINC 13.0 - g/dl ) 17.5 Low HEMOGLOBIN 9.8 LAB HEMATOCRIT(LOINC 40.0 - % ) 52.0 Low HEMATOCRIT 30.4 LAB MCV(LOINC) 81 - 98 fl MCV Low 78 LAB MCH(LOINC) 27 - 33 pg MCH Low 25 LAB MCHC(LOINC) 32 - 36 X10 3 MCHC 32 LAB RDW/CV(LOINC) 12.0 - % 15.6 RDW/CV High 17.8 LAB PLATELET(LOINC) 150 - 450 x10EE3/UL PLATELET Low 146 LAB MPV(LOINC) 6.4 - 10.5 fl MPV 10.3 Result Comment: AUTOMATED DIFFERENTIAL LAB NEUT %(LOINC) 46.0 - 76.0 % NEUT % High 87.8 LAB LYMPH %(LOINC) 20.0 - 45.0 % Low LYMPH % 4.3 LAB MONOS %(LOINC) 0.0 - 10.0 % MONOS % 7.6 LAB EO %(LOINC) 0.0 - 7.0 % EO % 0.1 LAB BASO %(LOINC) 0.0 - 2.0 % BASO % 0.2 LAB Lymph #(LOINC) 0.80 - 2.80 x10EE3/U Low L Lymph # 0.50 LAB Neut #(LOINC) 1.50 - 7.10 x10EE3/U L Neut # High 10.20 LAB [place] #(LOINC) 0.20 - 1.00 x10EE3/U L [place] # 0.90 LAB EO #(LOINC) 0.00 - 0.50 x10EE3/U L EO # 0.00 LAB Baso #(LOINC) 0.00 - 0.10 x10EE3/U L Baso # 0.00 LAB MANUAL DIFF(LOINC) MANUAL DIFF N/A LAB MORPHOLOGY(LOINC ) MORPHOLOGY N/A Result Comment: {CD] Performed By: #### [id number] #### [facility],[address] [place] [address] BMP WITH EGFR Collected: 03/18/2018 Status: F Source: [facility] 5:10 AM [facility] REPOSITORY TYPE CODE TESTS RESULT OUT OF RANGE REFERENCE UNITS LAB BMP with eGFR(LOINC) BMP with eGFR Result Comment: BASIC METABOLIC PANEL LAB SODIUM(LOINC) 136 - 145 mmol/l SODIUM 138 LAB POTASSIUM(LOINC) 3.5 - 5.1 mmol/L POTASSIUM 3.8 LAB CHLORIDE(LOINC) 98 - 107 mmol/L CHLORIDE 103 LAB CO2(LOINC) 21.0 - mmol/L 31.0 CO2 30.0 LAB GLUCOSE(LOINC) 74 - 106 mg/dl GLUCOSE 94 LAB BUN(LOINC) 6 - 20 mg/dl BUN High 21 LAB CREATININE(LOINC) 0.7 - 1.3 mg/dl CREATININE 0.9 LAB CALCIUM(LOINC) 8.6 - mg/dl 10.2 CALCIUM Low 8.5 LAB ANION GAP(LOINC) 10 - 20 mmol/L ANION Low GAP 9 LAB AGE(LOINC) years AGE 78 LAB eGFR(LOINC) 60 - 999 ML/MINUTE eGFR >60 LAB eGFR(AA)(LOINC) 60 - 999 ML/MINUTE eGFR(AA) >60 Result Comment: ACCORDING TO THE NATIONAL KIDNEY DISEASE EDUCATION PROGRAM(NKDE), A NORMAL eGFR IS A VALUE GREATER THAN OR EQUAL TO 60 ML/MIN/1.73 SQ METERS. CHRONIC KIDNEY DISEASE: <60mL/MIN/1.73 SQ METERS KIDNEY FAILURE: <15mL/MIN/1.73 SQ METERS THIS TEST SHOULD ONLY BE USED FOR PATIENTS 18 YEARS OF AGE AND OLDER. Performed By: #### [id number] #### [facility],[address] [place] [address] HISTORY AND PHYSICAL Observed: 03/17/2018 Status: F Source: [facility] 9:08 PM [facility] REPOSITORY [facility] HISTORY & PHYSICAL NAME ACCOUNT SEX AGE ADMIT DISCHARGE PT MED. RECORD# NUMBER DATE DATE TYPE MARY RODRIGUEZ [id number] M 78 03/16/18 1 [id number] ROOM: [facility] DATE OF : 38 DICTATING PHYSICIAN: Diamond Smart CHIEF COMPLAINT: Cough, shortness of breath and wheezing. HISTORY OF PRESENT ILLNESS: This is a 78-year-old male with a past medical history significant for COPD and hypertension, who started with increasing wheezing last week. He has a chronic cough that started to worsen and some yellow sputum. He went and saw Dr. Horvath yesterday. He was sent home with an antibiotic. He started to feel worse with an increasing cough, shortness of breath, and wheezing and came to the Emergency Room. In the Emergency Room, he was severely hypoxic, hypertensive, and in respiratory distress. He had an elevated white count with a left shift. He was tachycardic. X-ray revealed bilateral infiltrates in the Emergency Room. He was given a dose of Solu-Medrol and was started on Rocephin, Zithromax and oxygen support. Oxygen improved. He was admitted for further management. Upon evaluation this morning, he does feel better. He continues with a cough and shortness of breath. PAST MEDICAL HISTORY: (1) COPD. He states he has never been on home oxygen. He has not had pulmonary function testing in the past. (2) Right inguinal hernia. (3) Hypertension. PAST SURGICAL HISTORY: Teeth extraction. MEDICATIONS: (1) Atenolol 25 mg daily. (2) Ipratropium bromide nasal spray, 2 sprays in each nostril twice daily. (3) DuoNeb treatments 2 times daily as needed. (4) Losartan 50 mg daily. (5) Symbicort 160/4.5 mg one puff daily. (6) Ventolin inhaler 2 puffs every 4 hours p.r.n. (7) Hydrochlorothiazide 25 mg daily. ALLERGIES: No known drug allergies. FAMILY HISTORY: Father's side of the family had a history of cancers. His father was a smoker and drank alcohol. No coronary artery disease in the family. SOCIAL HISTORY: The patient is a . He used to smoke one pack of cigarettes per day. He quit at age 37. 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 He has 2 daughters. REVIEW OF SYSTEMS: He denies any headache or acute visual changes. No fever or chills. He has had generalized weakness and fatigue, increased cough, shortness of breath, and wheezing. He does have a chronic cough. It did become productive. No Page 1 of 4 MARY RODRIGUEZ History & Physical abdominal pain. No nausea, vomiting, or diarrhea. No urinary symptoms. No increased sweating or palpitations. The rest of review of systems was discussed and was negative. PHYSICAL EXAMINATION GENERAL APPEARANCE: The patient was lying in bed in no acute distress. He is alert, pleasant and cooperative. VITAL SIGNS: Blood pressure is 100/52, heart rate 88, respirations 18, temperature 98.8 and oxygen saturation 94% on 3 liters. Initially blood pressure was 176/110, temperature 99.1, heart rate 110, and oxygen saturation 52% on room air and required a 60% nonrebreather. HEENT: HEENT revealed oxygen per nasal cannula. His voice is hoarse. Otherwise unremarkable. NECK: Supple. No nodes. No masses. No JVD. No bruit. LUNGS: Mild increased respiratory effort on oxygen support. Equal lung expansion. Crackles in both bases with diminished breath sounds. HEART: Distant heart sounds. Regular rate and rhythm. ABDOMEN: Positive bowel sounds. Soft and nontender. EXTREMITIES: Free of edema, cyanosis or clubbing. NEUROLOGIC: He is alert and oriented. Mood, affect and memory are within normal limits, and he answers questions appropriately. DIAGNOSTIC DATA: White count is 17.4, hemoglobin 10.4, hematocrit 32.6, MCV 78, and MCH 25. D-dimer is 264. Lactate initially was 21.6; it came down to 2.9. Troponin is 0.06. CMP on admission revealed glucose of 152. Glucose this morning was 169. Albumin is 3.3. Chest x-ray, AP, completed on admission and read by the radiologist with bilateral lower lobe infiltrates. IMPRESSIONS/PLAN: 1. Acute community-acquired pneumonia. The patient was admitted to the hospital on oxygen support to keep pulse oximetry above or equal to 92%, broad-spectrum IV antibiotics with Rocephin and Zithromax after cultures were obtained in the Emergency Room, DuoNeb treatments, incentive spirometry and Acapella. 2. Chronic obstructive pulmonary disease exacerbation. He received Solu-Medrol 125 mg IV x1 in the Emergency Room. The patient is on oxygen support. Hypoxemia is Page 2 of 4 MARY RODRIGUEZ History & Physical improving. DuoNeb treatments, incentive spirometry, Acapella, and prednisone 40 mg daily. It was discussed with the patient when exacerbation improves recommend pulmonary function test. 3. Hyperglycemia with no history of diabetes. We will recheck a fasting blood sugar in the a.m. and a hemoglobin A1c. 4. Anemia with low indices. We will check an iron panel. He may need further follow-up as an outpatient on this. We will recheck a CBC in the a.m. 5. Hypoalbuminemia, a complicating factor. 6. Hypertension with stable blood pressure. He is on atenolol and Losartan, and hydrochlorothiazide is on hold. 7. Sequential compression devices for deep venous thrombosis prophylaxis. The above was discussed with the patient. All of his questions were answered, and he verbalized understanding of the plan. Also, his daughter's questions were answered at the bedside. Dictated by joselin Sanford for Dr. Smart. I personally evaluated and examined the patient and agree with above note that reflects my visit to the patient and my decision making. Diamond Smart MD 03/17/18 11:19 JOB #: [id number] Transcribed By: honey 03/17/18 11:26 Electronically signed by: Warren Smart M.D. 03/17/18 21:08 Update to H&P: [ ] No changes: I have examined the patient and reviewed the H&P and there are no changes. [ ] As previously dictated with the following changes: Page 3 of 4 MARY RODRIGUEZ History & Physical PHYSICIAN SIGNATURE: TIME: DATE: Page 4 of 4 MARY RODRIGUEZ History & Physical CBC Collected: 03/17/2018 Status: F Source: [facility] RAMIRE[facility] 4:32 AM [facility] REPOSITORY TYPE CODE TESTS RESULT OUT OF RANGE REFERENCE UNITS LAB CBC(LOINC) CBC Result Comment: CBC-COMPLETE BLOOD COUNT LAB WBC(LOINC) 4.5 - 10.8 x 10EE3/UL WBC High 17.4 LAB RBC(LOINC) 4.50 - x 10EE6/UL 6.00 RBC Low 4.20 LAB HEMOGLOBIN(LOINC 13.0 - g/dl ) 17.5 Low HEMOGLOBIN 10.4 LAB HEMATOCRIT(LOINC 40.0 - % ) 52.0 Low HEMATOCRIT 32.6 LAB MCV(LOINC) 81 - 98 fl MCV Low 78 LAB MCH(LOINC) 27 - 33 pg MCH Low 25 LAB MCHC(LOINC) 32 - 36 X10 3 MCHC 32 LAB RDW/CV(LOINC) 12.0 - % 15.6 RDW/CV High 17.8 LAB PLATELET(LOINC) 150 - 450 x10EE3/UL PLATELET 151 LAB MPV(LOINC) 6.4 - 10.5 fl MPV 10.2 Result Comment: AUTOMATED DIFFERENTIAL LAB NEUT %(LOINC) 46.0 - 76.0 % NEUT % High 92.3 LAB LYMPH %(LOINC) 20.0 - 45.0 % Low LYMPH % 1.5 LAB MONOS %(LOINC) 0.0 - 10.0 % MONOS % 4.9 LAB EO %(LOINC) 0.0 - 7.0 % EO % 0.0 LAB BASO %(LOINC) 0.0 - 2.0 % BASO % 1.3 LAB Lymph #(LOINC) 0.80 - 2.80 x10EE3/U Low L Lymph # 0.30 LAB Neut #(LOINC) 1.50 - 7.10 x10EE3/U L Neut # High 16.10 LAB [place] #(LOINC) 0.20 - 1.00 x10EE3/U L [place] # 0.90 LAB EO #(LOINC) 0.00 - 0.50 x10EE3/U L EO # 0.00 LAB Baso #(LOINC) 0.00 - 0.10 x10EE3/U L Baso # High 0.20 LAB MANUAL DIFF(LOINC) MANUAL DIFF N/A LAB MORPHOLOGY(LOINC ) MORPHOLOGY N/A Result Comment: {CD] Performed By: #### [id number] #### [place] [id number] TROPONIN Collected: 03/17/2018 Status: F Source: [facility] 4:[address] [place] [address] REPOSITORY TYPE CODE TESTS RESULT OUT OF REFERENCE UNITS RANGE LAB TROPONIN 0.00 - 0.05 ng/ml I(LOINC) TROPONIN I 0.04 Result Comment: Elevated troponin (above the 99th percentile) usually indicates myocardial ischemia. Results must be interpreted within the clinical setting. 1.Non-ischemic pathology can also cause elevated troponin levels (e.g., acute pulmonary embolism, myocarditis, pericarditis, heart failure, intracranial injury, rhabdomyolisis, sepsis, shock and renal insufficiency). 2.Approximately 1% of healthy adults have elevated troponin levels. 3.Analytical false positive results rarely occur(due to multiple interferences such as heterophile antibodies). Performed By: #### [id number] #### [address] [id number] CMP WITH EGFR Collected: 03/17/2018 Status: F Source: [facility] 4:[address] [place] [address] REPOSITORY TYPE CODE TESTS RESULT OUT OF RANGE REFERENCE UNITS LAB CMP with eGFR(LOINC) CMP with eGFR Result Comment: COMPREHENSIVE METABOLIC PANEL LAB SODIUM(LOINC) 136 - 145 mmol/l SODIUM 137 LAB POTASSIUM(LOINC) 3.5 - 5.1 mmol/L POTASSIUM 3.8 LAB CHLORIDE(LOINC) 98 - 107 mmol/L CHLORIDE 101 LAB CO2(LOINC) 21.0 - mmol/L 31.0 CO2 26.9 LAB GLUCOSE(LOINC) 74 - 106 mg/dl GLUCOSE High 169 LAB BUN(LOINC) 6 - 20 mg/dl BUN 18 LAB CREATININE(LOINC) 0.7 - 1.3 mg/dl CREATININE 1.0 LAB AST/SGOT(LOINC) 13 - 39 U/L AST/SGOT 15 LAB ALK PHOS(LOINC) 38 - 126 U/L ALK PHOS Low 32 LAB CALCIUM(LOINC) 8.6 - mg/dl 10.2 CALCIUM Low 8.4 LAB TOTAL 6.4 - 8.3 g/dl PROTEIN(LOINC) TOTAL Low PROTEIN 6.1 LAB ALBUMIN(LOINC) 3.4 - 4.8 g/dL ALBUMIN Low 3.3 LAB GLOBULIN(LOINC) 1.5 - 3.8 G/DL GLOBULIN 2.8 LAB A/G RATIO(LOINC) 0.9 - 1.6 A/G RATIO 1.2 LAB TOTAL BILI(LOINC) 0.0 - 1.5 mg/dl TOTAL BILI 0.6 LAB B/C RATIO(LOINC) 0 - 30 ratio B/C RATIO 18 LAB ALT/SGPT(LOINC) 10 - 40 U/L ALT/SGPT Low 9 LAB ANION GAP(LOINC) 10 - 20 mmol/L ANION GAP 13 LAB AGE(LOINC) years AGE 78 LAB eGFR(LOINC) 60 - 999 ML/MINUTE eGFR >60 LAB eGFR(AA)(LOINC) 60 - 999 ML/MINUTE eGFR(AA) >60 Result Comment: ACCORDING TO THE NATIONAL KIDNEY DISEASE EDUCATION PROGRAM(NKDE), A NORMAL eGFR IS A VALUE GREATER THAN OR EQUAL TO 60 ML/MIN/1.73 SQ METERS. CHRONIC KIDNEY DISEASE: <60mL/MIN/1.73 SQ METERS KIDNEY FAILURE: <15mL/MIN/1.73 SQ METERS THIS TEST SHOULD ONLY BE USED FOR PATIENTS 18 YEARS OF AGE AND OLDER. Performed By: #### [id number] #### [place] [address] RETICULOCYTE COUNT Collected: 03/17/2018 Status: F Source: [facility] 4:32 [facility] REPOSITORY TYPE CODE TESTS RESULT OUT OF REFERENCE UNITS RANGE LAB RETIC 0.0 - 2.3 % COUNT(LOINC) RETIC 0.9 COUNT LAB IRF(LOINC) 0.20 - 0.46 IRF IRF 0.28 Performed By: #### [id number] #### [place] [address] IRON AND UIBC Collected: 03/17/2018 Status: F Source: [facility] 4:32 [facility] REPOSITORY TYPE CODE TESTS RESULT OUT OF RANGE REFERENCE UNITS LAB IRON(LOINC) 65 - 175 ug/dl Low IRON 14 LAB UIBC(LOINC) 155 - 355 ug/dL UIBC 319 LAB TIBC(LOINC) 250 - 425 ug/dl TIBC 333 LAB Sat%(LOINC) 20 - 50 % Low Sat% 4 Performed By: #### [id number] #### [place] [address] FERRITIN Collected: 03/17/2018 Status: F Source: [facility] 4:32 AM [facility] REPOSITORY TYPE CODE TESTS RESULT OUT OF REFERENCE UNITS RANGE LAB FERRITIN(LO 12 - 200 ng/mL INC) FERRITIN 26 Performed By: #### [id number] #### [place] [address] VITAMIN B-12 Collected: 03/17/2018 Status: F Source: [facility] 4:32 AM [facility] REPOSITORY TYPE CODE TESTS RESULT OUT OF REFERENCE UNITS RANGE LAB N(LOINC) 180 - 914 pg/mL VITAMIN B12 338 Performed By: #### [id number] #### [place] [address] FOLATES Collected: 03/17/2018 Status: F [facility]: [facility] 4:32 AM [facility] REPOSITORY TYPE CODE TESTS RESULT OUT OF REFERENCE UNITS RANGE LAB FOLATES(KIYA 3.5 - 20.0 ng/ml NM) FOLATES 12.2 Performed By: #### [id number] #### [place] [id number] HGB A1C Collected: 03/17/2018 Status: F [facility] AM [facility] REPOSITORY TYPE CODE TESTS RESULT OUT OF RANGE REFERENCE UNITS LAB HGB 4.4 - 6.4 % A1C(LOINC) HGB A1C 6.2 Result Comment: {HB] {A1] Performed By: #### [id number] #### [place] [id number] TROPONIN Collected: 03/16/2018 Status: F Source: [facility] RAMIREZ 10:35 PM [facility] REPOSITORY TYPE CODE TESTS RESULT OUT OF REFERENCE UNITS RANGE LAB TROPONIN 0.00 - 0.05 ng/ml I(LOINC) High TROPONIN I 0.06 Result Comment: Elevated troponin (above the 99th percentile) usually indicates myocardial ischemia. Results must be interpreted within the clinical setting. 1.Non-ischemic pathology can also cause elevated troponin levels (e.g., acute pulmonary embolism, myocarditis, pericarditis, heart failure, intracranial injury, rhabdomyolisis, sepsis, shock and renal insufficiency). 2.Approximately 1% of healthy adults have elevated troponin levels. 3.Analytical false positive results rarely occur(due to multiple interferences such as heterophile antibodies). Performed By: #### [id number] #### [place] [address] LACTATE Collected: 03/16/2018 Status: F Source: [facility] 7:55 PM [facility] REPOSITORY TYPE CODE TESTS RESULT OUT OF REFERENCE UNITS RANGE LAB LACTATE(KIYA 4.5 - 18.0 mg/dL NC) LACTATE 7.9 Performed By: #### [id number] #### [place] [address] TROPONIN Collected: 03/16/2018 Status: F Source: [facility] 7:55 [facility] REPOSITORY TYPE CODE TESTS RESULT OUT OF REFERENCE UNITS RANGE LAB TROPONIN 0.00 - 0.05 ng/ml I(LOINC) TROPONIN I 0.04 Result Comment: Elevated troponin (above the 99th percentile) usually indicates myocardial ischemia. Results must be interpreted within the clinical setting. 1.Non-ischemic pathology can also cause elevated troponin levels (e.g., acute pulmonary embolism, myocarditis, pericarditis, heart failure, intracranial injury, rhabdomyolisis, sepsis, shock and renal insufficiency). 2.Approximately 1% of healthy adults have elevated troponin levels. 3.Analytical false positive results rarely occur(due to multiple interferences such as heterophile antibodies). Performed By: #### [id number] #### [place] [address] CHEST 1 VIEW Observed: 03/16/2018 Status: F [facility]:51 PM [place] [address] Patient: MARY RODRIGUEZ Phone#: : [phone] Age: 78 Gender: M Pt. Type: ER Account: [id number] Location: [facility] Ordering: GERARDO DODD Exam Date: 03/16/2018/16:39 Family Phys: KOMAL CISNEROS Charge Code: 463267 Physician: Sequoyah Order #: [id number] DLP Dose#: PROCEDURE: X-RAY CHEST 1 VIEW COMPARISON: None. INDICATIONS: Dyspnea FINDINGS: LUNGS: Bilateral lower lobe infiltrates are present VASCULATURE: Normal. Unremarkable pulmonary vasculature. CARDIAC: Normal. No cardiac silhouette abnormality or cardiomegaly. MEDIASTINUM: Normal. No visible mass or adenopathy. PLEURA: Normal. No effusion or pleural thickening. BONES: Normal. No fracture or visible bony lesion. OTHER: Negative. CONCLUSION: 1. Bilateral lower lobe infiltrates are present. Dictated by: Rachel Chang MD on 03/16/2018 at 16:57 Approved by: Rachel Chang MD on 03/16/2018 at 16:57 CBC Collected: 03/16/2018 Status: F Source: [facility] 4:38 PM [facility] REPOSITORY TYPE CODE TESTS RESULT OUT OF RANGE REFERENCE UNITS LAB CBC(LOINC) CBC Result Comment: CBC-COMPLETE BLOOD COUNT LAB WBC(LOINC) 4.5 - 10.8 x 10EE3/UL WBC High 17.4 LAB RBC(LOINC) 4.50 - x 10EE6/UL 6.00 RBC 4.80 LAB HEMOGLOBIN(LOINC 13.0 - g/dl ) 17.5 Low HEMOGLOBIN 11.8 LAB HEMATOCRIT(LOINC 40.0 - % ) 52.0 Low HEMATOCRIT 37.6 LAB MCV(LOINC) 81 - 98 fl MCV Low 78 LAB MCH(LOINC) 27 - 33 pg MCH Low 25 LAB MCHC(LOINC) 32 - 36 X10 3 MCHC Low 31 LAB RDW/CV(LOINC) 12.0 - % 15.6 RDW/CV High 17.9 LAB PLATELET(LOINC) 150 - 450 x10EE3/UL PLATELET 237 LAB MPV(LOINC) 6.4 - 10.5 fl MPV 9.3 Result Comment: AUTOMATED DIFFERENTIAL LAB NEUT %(LOINC) 46.0 - 76.0 % NEUT % High 87.6 LAB LYMPH %(LOINC) 20.0 - 45.0 % Low LYMPH % 6.8 LAB MONOS %(LOINC) 0.0 - 10.0 % MONOS % 4.9 LAB EO %(LOINC) 0.0 - 7.0 % EO % 0.4 LAB BASO %(LOINC) 0.0 - 2.0 % BASO % 0.3 LAB Lymph #(LOINC) 0.80 - 2.80 x10EE3/U L Lymph # 1.20 LAB Neut #(LOINC) 1.50 - 7.10 x10EE3/U L Neut # High 15.30 LAB [place] #(LOINC) 0.20 - 1.00 x10EE3/U L [place] # 0.80 LAB EO #(LOINC) 0.00 - 0.50 x10EE3/U L EO # 0.10 LAB Baso #(LOINC) 0.00 - 0.10 x10EE3/U L Baso # 0.00 LAB MANUAL DIFF(LOINC) MANUAL DIFF N/A LAB MORPHOLOGY(LOINC ) MORPHOLOGY N/A Result Comment: {CD] Performed By: #### [id number] #### [place] [address] D-DIMER, QUANTITATIVE Collected: 03/16/2018 Status: F Source: [facility] 4:[address] [place] [address] REPOSITORY TYPE CODE TESTS RESULT OUT OF REFERENCE UNITS RANGE LAB D-DIMER, QUANTITATI VE(LOINC) D-DIMER, QUANTITATIVE Result Comment: QUANT D-DIMER LAB D-DIMER 0 - 230 ng/ml QUANT(LOINC) High D-DIMER QUANT 264 Performed By: #### [id number] #### [place] [address] LACTATE Collected: 03/16/2018 Status: F Source: [facility] 4:[address] [place] [address] REPOSITORY TYPE CODE TESTS RESULT OUT OF REFERENCE UNITS RANGE LAB LACTATE(KIYA 4.5 - 18.0 mg/dL NC) High LACTATE 21.6 Performed By: #### [id number] #### [address],[place] [address] TROPONIN Collected: 03/16/2018 Status: F Source: [facility] 4:38 [facility] REPOSITORY TYPE CODE TESTS RESULT OUT OF REFERENCE UNITS RANGE LAB TROPONIN 0.00 - 0.05 ng/ml I(LOINC) TROPONIN I <0.01 Result Comment: Elevated troponin (above the 99th percentile) usually indicates myocardial ischemia. Results must be interpreted within the clinical setting. 1.Non-ischemic pathology can also cause elevated troponin levels (e.g., acute pulmonary embolism, myocarditis, pericarditis, heart failure, intracranial injury, rhabdomyolisis, sepsis, shock and renal insufficiency). 2.Approximately 1% of healthy adults have elevated troponin levels. 3.Analytical false positive results rarely occur(due to multiple interferences such as heterophile antibodies). Performed By: #### [id number] #### [place] [address] CMP WITH EGFR Collected: 03/16/2018 Status: F Source: [facility] 4:38 [facility] REPOSITORY TYPE CODE TESTS RESULT OUT OF RANGE REFERENCE UNITS LAB CMP with eGFR(LOINC) CMP with eGFR Result Comment: COMPREHENSIVE METABOLIC PANEL LAB SODIUM(LOINC) 136 - 145 mmol/l SODIUM 138 LAB POTASSIUM(LOINC) 3.5 - 5.1 mmol/L POTASSIUM 4.0 LAB CHLORIDE(LOINC) 98 - 107 mmol/L CHLORIDE 100 LAB CO2(LOINC) 21.0 - mmol/L 31.0 CO2 30.0 LAB GLUCOSE(LOINC) 74 - 106 mg/dl GLUCOSE High 152 LAB BUN(LOINC) 6 - 20 mg/dl BUN 19 LAB CREATININE(LOINC) 0.7 - 1.3 mg/dl CREATININE 1.1 LAB AST/SGOT(LOINC) 13 - 39 U/L AST/SGOT 16 LAB ALK PHOS(LOINC) 38 - 126 U/L ALK PHOS 56 LAB CALCIUM(LOINC) 8.6 - mg/dl 10.2 CALCIUM 9.2 LAB TOTAL 6.4 - 8.3 g/dl PROTEIN(LOINC) TOTAL PROTEIN 7.5 LAB ALBUMIN(LOINC) 3.4 - 4.8 g/dL ALBUMIN 4.2 LAB GLOBULIN(LOINC) 1.5 - 3.8 G/DL GLOBULIN 3.3 LAB A/G RATIO(LOINC) 0.9 - 1.6 A/G RATIO 1.3 LAB TOTAL BILI(LOINC) 0.0 - 1.5 mg/dl TOTAL BILI 0.8 LAB B/C RATIO(LOINC) 0 - 30 ratio B/C RATIO 17 LAB ALT/SGPT(LOINC) 10 - 40 U/L ALT/SGPT 11 LAB ANION GAP(LOINC) 10 - 20 mmol/L ANION GAP 12 LAB AGE(LOINC) years AGE 78 LAB eGFR(LOINC) 60 - 999 ML/MINUTE eGFR >60 LAB eGFR(AA)(LOINC) 60 - 999 ML/MINUTE eGFR(AA) >60 Result Comment: ACCORDING TO THE NATIONAL KIDNEY DISEASE EDUCATION PROGRAM(NKDE), A NORMAL eGFR IS A VALUE GREATER THAN OR EQUAL TO 60 ML/MIN/1.73 SQ METERS. CHRONIC KIDNEY DISEASE: <60mL/MIN/1.73 SQ METERS KIDNEY FAILURE: <15mL/MIN/1.73 SQ METERS THIS TEST SHOULD ONLY BE USED FOR PATIENTS 18 YEARS OF AGE AND OLDER. Performed By: #### [id number] #### [facility],[address] [place] [address] BNP (B-TYPE NATRIURETIC Collected: 03/16/2018 Status: F Source: [facility] PEPT[facility]) 4:38 PM [facility] REPOSITORY TYPE CODE TESTS RESULT OUT OF RANGE REFERENCE UNITS LAB BNP(LOINC) 1 - 100 pg/ml High BNP 209 Performed By: #### [id number] #### [facility],[address] [place] [address] MYCOPLASMA PNEUMO AB Collected: 03/16/2018 Status: F Source: [facility] MURCIANE IGG&M 4:38 PM [facility] REPOSITORY TYPE CODE TESTS RESULT OUT OF REFERENCE UNITS RANGE LAB MYCOPLASMA PNEUMO AB IGG&M(LOINC) MYCOPLASMA PNEUMO AB IGG&M Result Comment: _MYCOPLASMA PNEUMO AB IGG & IGM_ MYCOPLASMA PNEUMONIAE ANTIBODIES (IGG, IGM) Reported: 03/19/2018 17:31 Status=F TEST RESULT FLAG RANGE UNITS M. PNEUMONIAE AB (IGG) 4.11 H <=0.90 03/19/18.1743.rfl.COMPLETE.AMRR .5255-5 Reference Range: <=0.90 Negative 0.91-1.09 Equivocal >=1.10 Positive A positive IgG result indicates that the patient has antibody to Mycoplasma. It does not differentiate between an active or past infection. The clinical diagnosis must be interpreted in conjunction with the clinical signs and symptoms of the patient. M. PNEUMONIAE AB (IGM) 38 <770 U/mL 03/19/18.1743.rfl.COMPLETE.AMRR .5256-3 Reference Range: <770 U/ml Negative 770-950 U/mL Low positive >950 U/mL Positive A positive IgM antibody result is consistent with recent infection. However, a negative result does not necessarily rule out recent infection as some individuals may not mount another IgM response, if previously infected. A positive IgM antibody result with or without a positive IgG antibody result, is consistent with recent infection. However, a negative result does not necessarily rule out recent infection as some individuals may not mount another IgM response, if previously infected. A positive IgG antibody result in the absence of a positive IgM antibody result, indicates that the patient has antibody to Mycoplasma. It does not differentiate between an active or past infection. The clinical diagnosis must be interpreted in conjunction with the clinical signs and symptoms of the patient. Test Performed by Yuniel Chu, [facility], [address] [place] [address] Fareed Lira M.D., Ph.D., Director of Laboratories , [facility] [id number] Performed By: #### [id number] #### [facility],[address] [place], [place] [address] Observed: 03/16/2018 Status: F Source: [facility] CULTURE BLOOD 4:38 PM [facility] REPOSITORY CULTURE BLOOD _BLOOD CULTURE_ SET: 2 24HOUR REPORT NO GROWTH 48HOUR REPORT NO GROWTH 72HOUR REPORT NO GROWTH M I C R O B I O L O G Y R E P O R T FINAL Antimicrobial Susceptibility and Organism Identification Report Specimen Number : [id number] Requested : 03/16/18 Specimen Source : BLOOD Collected : 03/16/18 16:38 [place] [facility] [place] : Emergency Room Received : 03/16/18 16:38 Requesting Physician : JU Patient/Specimen Tests and Comments Specimen Comments FINAL REPORT: No Growth at 5 Days Tech : Source : BLOOD ID # : [id number] FINAL Report Date : / / : Collected : 03/16/18 16:38 03/22/18.BKO. 03/22/18.BKO.COMPLETE Performed By: #### [id number] #### [facility],[address] [place] [address] Observed: 03/16/2018 Status: F Source: [facility] CULTURE BLOOD 4:38 PM [facility] REPOSITORY CULTURE BLOOD _BLOOD CULTURE_ SET: 2 of 2 24HOUR REPORT NO GROWTH 48HOUR REPORT NO GROWTH 72HOUR REPORT NO GROWTH M I C R O B I O L O G Y R E P O R T FINAL Antimicrobial Susceptibility and Organism Identification Report Specimen Number : [id number] Requested : 03/16/18 Specimen Source : BLOOD Collected : 03/16/18 16:38 [place] : Med/Surg Received : 03/16/18 16:38 Requesting Physician : BING Patient/Specimen Tests and Comments Specimen Comments FINAL REPORT: No Growth at 5 Days Tech : Source : BLOOD ID # : [id number] FINAL Report Date : / / : Collected : 03/16/18 16:38 03/22/18.HEATHO. 03/22/18.BKO.COMPLETE Performed By: #### [id number] #### [facility],[address] [place] [address] ALLERGIES ALLERGIES DATE TYPE / CODE NAME / CODE REACTION SEVERITY SOURCE 11/19/2018 Drug fosinopril/F006 cough SV [place] Allergy/234304447(S 316514(RXNORM) General acute hospital) Hospital Repository Miscellaneous No Known Drug Moderate [facility] Allergy/395669288(S Allergies (Severity [facility][note 3] CT) Modifier) Hospital (Qualifier Repository Value) ENCOUNTERS ENCOUNTERS ADMIT/DISCHARGE ACCOUNT ADMITTING ENCOUNTER LOCATION SOURCE NUMBER CLASS 11/26/2018 [id number] [facility] 8 [facility] ing:PSN Repository 11/24/2018 [id number] [facility] 7 [facility] ing:PSN Repository 11/20/2018/ [id number] Ambulatory BMSBuilding:B [place] 9 0 MS.PMW [facility] Repository 11/07/2018/ [id number] JESUS ZAVALETA Inpatient BuildinR Rafal Ramirez 9 Encounter oom: 302 [facility] Repository 09/18/2018/ [id number] RANDI, [facility] KOMAL LACEY oom: 309 [facility] Repository 04/21/2018/ [id number] JIA, Emergency BuildinR [facility] 8 FAISAL OCHOA oom: ERBed: A [facility] Repository 03/27/2018/ [id number] JULIÁN, [facility] SHAQU[place]LE [facility] Repository 03/27/2018/ [id number] DR JU Emergency BuildinR [facility] 8 GERARDO Bryant oom: ERBed: D [facility] Repository 03/16/2018/ [id number] BING, Inpatient BuildinR [facility] DIAMOND LACEY Encounter oom: 303 [facility] Repository PAYERS PAYERS ENCOUNTER GUARANTOR PAYER SUBSCRIBER SOURCE 11/26/2018 MARY Cox Primary MARY [id number] S Insurance:MEDICARE SCHIEDOB: [facility] PART A BPolicy Number: [id number] [facility] [id number] [place]ository [place] [address]Ffh: Date:2018-11-20 () 11/26/2018 Secondary MARY Brooke [place] Insurance:HUMANA SCHIEDOB: [facility] [id number] Hospital Number: Repository [id number] Date:[id number] [address]DF: 11/26/2018 Tertiary NOT GIVENUNK Reji Insurance:SELF PAY [facility] Number: Effective Repository Date:2018-11-20 11/24/2018 MARY B Primary MARY B Reji [id number] S Insurance:MEDICARE SCHIEDOB: Located within [facility] PART A BPolicy Number: [id number] [id number] Repository [address]Lsj: 330) Date:2018-11-20 [phone] () 11/24/2018 Secondary MARY B Rjei Insurance:HUMANA SCHIEDOB: [facility] [id number] Hospital Number: Repository [id number] Date:[id number] [address]VO: 11/24/2018 Tertiary NOT GIVENUNK [place] Insurance:SELF PAY [facility] Number: Effective Repository Date:2018-11-20 11/20/2018 Mary [id number] Primary Mary SchieDOB: [place] S Insurance:MEDICARE [id number] PART A BPolicy Number: [place], [place] [id number] Repository [address]Llh: 330) Date:2018-11-18 [phone] () 11/20/2018 Secondary Mary SchieDOB: [place] Insurance:HUMANA [id number] Number: Repository [id number] Date:[id number] [address]NT: 11/20/2018 Tertiary NOT GIVENUNK [place] Insurance:SELF PAY [facility] Number: Effective Repository Date:2018-11-19 11/07/2018 MARY SCHIEDOB: Primary MARY B Rafal Ramirez S Insurance:MEDICARE SCHIEDOB: [facility] [id number] [facility], Number: [facility] Repository Dc [id number]: [id number] [place], Date:Plan Name:[facility] [id number] () 11/07/2018 Secondary MARY SCHIEDOB: Rafal Ramirez Insurance:HUMANA [id number] [facility], Repository Number: Dc [id number] Date:Plan Name: 09/18/2018 MARY GILOB: Primary Insurance:500 MARY Ramirez S MEDICARE O/PPolicy SCHIEDOB: [facility] Number: [id number] [facility], [id number] [facility] [place]ository [place] [id number]: Date:Plan Name:[facility], [place] [id number] () 09/18/2018 Secondary MARY Ramirez Insurance:HUMANA SCHIEDOB: [facility] MEDICARE ADVANTAGE [id number] [facility] Repository Number: [facility] [id number] [place] [id number] Date:Plan Name: 04/21/2018 MARY GILOB: Primary Insurance:500 MARY GILOB: Rafal Ramirez S MEDICARE O/PPolicy [id number] [facility] Number: [facility], [id number] [facility], Repository [place] [id number]: Date:Plan Name:[facility] [id number] () 03/27/2018 MARY GILOB: Primary MARY Ramirez S Insurance:MEDICARE SCHIEDOB: [facility] [id number] [facility], Number: [facility] [place]ository [place] [id number]: [id number] [place], Date:Plan Name:[facility] [id number] (HP) 03/27/2018 MARY GILOB: Primary Insurance:500 MARY GILOB: Rafal Ramirez S MEDICARE O/PPolicy [id number] [facility] Number: [facility], [id number] [place], Repository [place] [id number]: Date: [place] [id number] (HP) 03/16/2018 MARY BOLIVAR: Primary MARY Ramirez [id number] S Insurance:MEDICARE OSMEL: [facility] [id number] [facility], Number: S [facility] [id number]: [id number] [facility], Date:Plan Name:[facility] [phone] ()
== END ==
PROVIDERS: Family Provider Family Medicine; PCP Family Medicine; Referring Provider Internal Medicine Critical Care Medicine; Visit Provider Internal Medicine Critical Care Medicine
DX: R06.00 Dyspnea, unspecified (principal)
CPT/HCPCS: 94060; 94726; 94729

== ENCOUNTER → 2018-11-26 08:07 | Outpatient (CLI) | payer MEDICARE, OTHER, SELFPAY ==
[2018-11-20 10:16] VITALS: BMI 21.0
[2018-11-26 09:18] VITALS: PULSE 100; PULSE 102; PULSE 107; PULSE 110; PULSE 95; PULSE 97; PULSE 98; O2SAT 88; O2SAT 91; O2SAT 92; O2SAT 93; O2SAT 94
--- NOTE | 2018-11-26 09:23 | CPS ---
HE CAME WITH O2 ON AT 2LMP 95%TOOK HIM OFF WENT DOWN TO 92% STARTED THE TEST OFF 02 AND AT THE END OF 1 MINUTE DROPPED TO 88% AND PLACED ON 2 LPM FOR THE REST OF TEST.
--- NOTE | 2018-11-26 15:47 | WT_ITS ---
PSN 6 Minute Walk Test - 6 Minute Walk Test 6 Minute Walk Test: 6 Minute Walk Test PSN:6-Minute Walk Test Start: 11/26/18 09:18 Freq: Status: Active Protocol: [id number] Document 11/26/18 09:18 FR (Rec: 11/26/18 09:27 FR [id number]) 6 Minute Walk Test Date Performed 11/26/18 Time Performed 08:30 Height 6 ft 3 in Weight: 78.471 kg Weight in Pounds 173.[address]: Elpidio Fernandez Assistive device used: None Pre-test Oxygen Delivery Method Room Air Pulse Ox (%) 92 Pulse Rate (60-100 beats/min) 95 Dyspnea Ang Scale (0-10) 7 Exertion Ang Scale (6-20) 13 1st minute Oxygen Delivery Method Room Air Pulse Ox (%) 88 Pulse Rate (60-100 beats/min) 107 H Reported Symptoms Increased Work of Breathing 2nd minute Oxygen Flow Rate (L/min) (L/min) 2 Oxygen Delivery Method Nasal Cannula Pulse Ox (%) 91 Pulse Rate (60-100 beats/min) 97 Number of Rests Taken 1 Reported Symptoms Increased Work of Breathing 3rd minute Oxygen Flow Rate (L/min) (L/min) 2 Oxygen Delivery Method Nasal Cannula Pulse Ox (%) 93 Pulse Rate (60-100 beats/min) 102 H 4th minute Oxygen Flow Rate (L/min) (L/min) 2 Oxygen Delivery Method Nasal Cannula Pulse Ox (%) 93 Pulse Rate (60-100 beats/min) 110 H 5th minute Oxygen Flow Rate (L/min) (L/min) 2 Oxygen Delivery Method Nasal Cannula Pulse Ox (%) 92 Pulse Rate (60-100 beats/min) 110 H 6th minute Oxygen Flow Rate (L/min) (L/min) 2 Oxygen Delivery Method Nasal Cannula Pulse Ox (%) 91 Pulse Rate (60-100 beats/min) 100 Dyspnea Ang Scale (0-10) 7 Exertion Ang Scale (6-20) 13 Post-test Oxygen Flow Rate (L/min) (L/min) 2 Oxygen Delivery Method Room Air Pulse Ox (%) 94 Pulse Rate (60-100 beats/min) 98 Full Laps Walked 10 Partial Lap, Number of Tiles Walked 88 Total Distance Walked (ft) 678 11/26/18 09:23 Cardiopulmonary Services by Yolande Smiley HE CAME WITH O2 ON AT 2LMP 95%TOOK HIM OFF WENT DOWN TO 92% STARTED THE TEST OFF 02 AND AT THE END OF 1 MINUTE DROPPED TO 88% AND PLACED ON 2 LPM FOR THE REST OF TEST. Initialized on 11/26/18 09:23 - END OF NOTE - Interpretation Interpretation: Patient was noted to be 92% on room air. Patient desaturated to 88% in the first minute of ambulation. Saturations improved to 91%. The patient was able to complete ambulation for a total of 6 minutes. Over the course of 6 minutes, patient did travel 678 feet and peak heart rate was noted at 110 bpm. These findings are consistent with a respiratory limitation exercise tolerance. - Recommendations Recommendations: Patient requires no supplemental oxygen at rest, but should be using 2 L nasal cannula oxygen with any exertion.
== END ==
PROVIDERS: Family Provider Family Medicine; PCP Family Medicine; Referring Provider Internal Medicine Critical Care Medicine; Visit Provider Internal Medicine Critical Care Medicine
DX: R06.00 Dyspnea, unspecified (principal)
CPT/HCPCS: 94618

== ENCOUNTER → 2018-11-30 13:23 | Outpatient (CLI) | payer MEDICARE, OTHER, SELFPAY ==
[2018-11-20 10:16] VITALS: BMI 21.0
--- NOTE | 2018-11-30 13:25 | ECHOCS_ITS ---
Reason For Study: Dyspnea/SOB Procedure This was a 2D Doppler, Color Flow transthoracic echocardiogram. Techncially difficult study, patient had to remain sitting up due to difficulty breathing. Exam performed in department. Left Ventricle Normal LV size. The estimated ejection fraction is 40 %. Mild to moderate global left ventricular systolic dysfunction. Stage 1 diastolic dysfunction. There is mild to moderate global hypokinesis of the left ventricle. Right Ventricle Normal RV size. Normal systolic function. Atria Normal left atrium. Normal right atrium. Mitral Valve Mitral valve not well visualized. Tricuspid Valve The tricuspid valve is not well visualized. Mild (1+) tricuspid valve insufficiency. Pulmonary artery systolic pressure is 38 mmHg. Aortic Valve Normal aortic valve. Pulmonic Valve The pulmonic valve is not well visualized. Great Vessels Normal aortic root. The pulmonary artery is normal size. Normal inferior vena cava. Pericardium/Pleural No pericardial effusion. MMode/2D Measurements & Calculations LVIDd: 5.0 cm IVSd: 0.75 cm Ao root diam: 3.8 cm LVIDs: 4.0 cm LVPWd: 0.97 cm LA dimension: 3.9 cm RVDd: 4.2 cm FS: 19.6 % LAV(MOD-sp4): 48.0 ml LA A4 area: 18.6 cm2 RA A4 area: 20.7 cm2 Time Measurements MV dec time: 0.20 sec Doppler Measurements & Calculations MV E max monalisa: 56.4 cm/sec MV V2 max: 84.5 cm/sec MV P1/2t max monalisa: 71.7 cm/sec MV A max monalisa: 78.9 cm/sec MV max P.9 mmHg MV P1/2t: 94.6 msec MV E/A: 0.72 MV V2 mean: 49.7 cm/sec MV dec slope: 222.0 cm/sec2 MV mean P.2 mmHg MVA(P1/2t): 2.3 cm2 MV V2 VTI: 23.8 cm Ao V2 max: 58.7 cm/sec LV V1 max: 66.6 cm/sec PA V2 max: 77.0 cm/sec Ao max P.4 mmHg LV V1 max P.8 mmHg TR max monalisa: 287.6 cm/sec TR max P.1 mmHg Interpretation Summary Normal LV size. The estimated ejection fraction is 40 %. Mild to moderate global left ventricular systolic dysfunction. Stage 1 diastolic dysfunction. Pulmonary artery systolic pressure is 38 mmHg. Contrast injection was performed. Ordering Physician: Elpidio Fernandez Referring Physician: Elpidio Fernandez Performed By: Bernardo Trejo RCS
== END ==
PROVIDERS: Family Provider Family Medicine; PCP Family Medicine; Referring Provider Internal Medicine Critical Care Medicine; Visit Provider Internal Medicine Critical Care Medicine
DX: R06.00 Dyspnea, unspecified (principal)
CPT/HCPCS: 93306; Q9957; A4216; C8929

== ENCOUNTER → 2018-12-31 13:15 | Outpatient (CLI) | payer MEDICARE, OTHER, SELFPAY ==
[2018-12-31 13:10] VITALS: BMI 21.0
[2018-12-31 13:34] LABS: Absolute Lymphocyte Count 0.43 X10^3/ul (0.83-4.51); Absolute Neutrophil Count 6.8 X10^3/uL (2.0-7.7); Basophil# 0.02 X10^3/uL; Basophil% 0.3 % (0-1); Eosinophil# 0.01 X10^3/uL; Eosinophils% 0.1 % (0-5); Hematocrit 37.8 % (40-54); Hemoglobin 10.8 g/dl (13.0-16.5); Lymphocyte # 0.43 X10^3/ul (4.0); Lymphocyte % 5.6 % (19-41); Mean Corp Hgb Conc 28.6 g/gl (32-36); Mean Corpuscular Hgb 26.3 pg (27.0-32.0); Mean Corpuscular Volume 92.2 fL (80-94); Mean Platelet Vol. 11.7 fl (6.2-12.0); Monocyte# 0.38 X10^3/uL; Monocyte% 4.9 % (0-10); Neutrophil # 6.81 X10^3/uL (2.7-7.7); Neutrophil % 87.9 % (47-70); Platelet Count 256 K/mm3 (150-450); RBC Distribution Width SD 52.4 fl (35.1-43.9); White Blood Count 7.7 K/mm3 (4.4-11.0)
[2018-12-31 13:35] LABS: POSITIVE COUNT NO; POSITIVE DIFFERENTIAL YES; POSITIVE MORPHOLOGY NO
[2018-12-31 13:36] LABS: Differential Indicated SCAN CRITERIA MET
[2018-12-31 13:51] LABS: Hypochromasia 1+; Schistocytes 1+
== END ==
PROVIDERS: Family Provider Family Medicine; PCP Family Medicine; Referring Provider Internal Medicine Critical Care Medicine; Visit Provider Internal Medicine Critical Care Medicine
DX: J96.11 Chronic respiratory failure with hypoxia (principal); Z87.19 Personal history of other diseases of the digestive system
CPT/HCPCS: 36415; 85025

== ENCOUNTER → 2019-01-05 11:33 | Outpatient (CLI) | payer MEDICARE, OTHER, SELFPAY ==
[2019-01-05 10:25] VITALS: BMI 21.0
[2019-01-05 12:21] LABS: Hematocrit 33.7 % (40-54); Hemoglobin 10.1 g/dl (13.0-16.5); Mean Corpuscular Hgb 27.1 pg (27.0-32.0); Mean Corpuscular Volume 90.3 fL (80-94); Platelet Count 290 K/mm3 (150-450); RBC Distribution Width CV 16.2 % (11.6-14.6); RBC Distribution Width SD 54.4 fl (35.1-43.9); Red Blood Count 3.73 M/mm3 (4.6-6.2)
[2019-01-05 12:26] LABS: Scan Indicated on CBC? Y/N NO
[2019-01-05 12:37] LABS: Prothrombin Time (Protime)PT. 13.3 SECONDS (11.7-14.9)
[2019-01-05 12:38] LABS: Partial Thromboplast Time 29.5 Seconds (24.1-36.2)
[2019-01-05 12:55] LABS: Anion Gap 8 (5-15); BUN 14 mg/dL (7-18); BUN/Creat Ratio 13.2 RATIO (10-20); Calcium,Total 8.6 mg/dL (8.5-10.1); Chloride 99 mmol/L (98-107); Creatinine, Serum 1.06 mg/dL (0.70-1.30); EST Glomerular Filtration Rate 72 mL/min (>60); Est Glom Filt Rate - Afr Amer 87 mL/min (>60); Glucose 103 mg/dL (74-106); Potassium 3.8 mmol/L (3.5-5.1); Sodium Level 141 mmol/L (136-145)
== END ==
PROVIDERS: Family Provider Family Medicine; PCP Family Medicine; Referring Provider Internal Medicine Cardiovascular Disease; Visit Provider Internal Medicine Cardiovascular Disease
DX: I49.3 Ventricular premature depolarization (principal); I50.22 Chronic systolic (congestive) heart failure; Z87.19 Personal history of other diseases of the digestive system
CPT/HCPCS: 36415; 80048; 85027; 85610; 85730

== ENCOUNTER 2019-01-08 06:32 | Day surgery (SDC) | payer MEDICARE, OTHER, SELFPAY ==
[2019-01-05 10:25] VITALS: BMI 21.0
[2019-01-07 07:38] VITALS: BMI 21.0
--- NOTE | 2019-01-08 09:34 | CL.D_ITS ---
Patient Name: MARY RODRIGUEZ Study Date: 01/08/2019 Performing: Ayden Garcia MD Ht: 75.98 inches 193 cm : 1940 Wt: 171.96 lbs 78 kg Age: 78 Gender: male BSA: 2.08 PROCEDURE(S) PERFORMED [id number]/LHC/COR/LV CLINICAL PROFILE AND INDICATIONS Indications: LV Dysfunction, Suspected CAD Heart Failure: NYHA Class: 2, Newly Diagnosed: Yes, Heart Failure Type: Systolic Stress/Imaging Stress/Image Study Performed: No Angina Classification Anginal Classification w/in 2 Weeks: No symptoms CAD Presentations: Other: Dyspnea on exertion. Comorbidities/Risk Factors: Hypertension Dyslipidemia Prior CHF Chronic Lung Disease CONCLUSIONS Normal coronary arteries Right heart pressures - mildly elevated The patient has pulmonary hypertension which is mild. Global LV systolic dysfunction- Mild LVEF: by LV gram 50 % RECOMMENDATIONS increase lasix to 40mg po bid for elevated LVEDP and mild pulmonary HTN. Manual sheath removal. Management of stage IV COPD. DESCRIPTION OF PROCEDURE The patient arrived to the procedure lab. The risks and benefits of the procedure as well as a full d escription of our services here and current unavailability of surgical backup were fully explained to the patient and/or their significant other prior to the catheterization. The Timeout was completed, verifying the correct patient and procedure. The patient's procedural site was prepped and draped in the usual fashion. Local anesthetic was given subcutaneously to right groin region with Lidocaine 2%. Using a modified Seldinger technique, arterial access was obtained via the right femoral artery, a 4 Fr sheath was inserted Venous access was obtained via the right femoral vein, a 7Fr sheath was insert ed. A 7Fr thermal dilution catheter was inserted and right heart pressures were recorded, it was then advanced to PA position for cardiac outputs. Thermal dilution cardiac outputs were then recorded. O2 saturations were then obtained. The Thermal dilution catheter was then removed. Simultaneous pressures were then recorded. Left Ventriculography was performed in BAILEY projection usin g a 4 Fr. Pigtail catheter. LV to AO pullback pressures were then recorded. Left Coronary Artery olu ctive angiography was performed in multiple views using a 4 Fr. JL5 catheter. Right Coronary Artery s elective angiography was then performed in multiple views using a 4 Fr. 3DRC catheter.The arterial sh eath was pulled and manual compression applied until hemostasis is achieved. CORONARY ANGIOGRAPHY DOMINANCE: Right Dominant LEFT HEART ASSESSMENT Left Ventricular Ejection Fraction: by LV Gram 50 % Global Hypokinesis - Mild Depressed Left Ventricular systolic function RIGHT HEART ASSESSMENT Thermal CO: 6 Thermal CI: 2.88 Mckayla CO: 5.92 Mckayla CI: 2.85 PW: 20 PA: 46/6 25 RV: 36/-4 0 RA: 12/08 -1 PVR: 67 Right Heart pressures - elevated Pulmonary Hypertension Mild LEFT MAIN: Angiographically normal LEFT ANTERIOR DECENDING ARTERY: Angiographically normal CIRCUMFLEX ARTERY: Angiographically normal RIGHT CORONARY ARTERY: Angiographically normal COMPLICATIONS No Complications PROCEDURE MEDICATIONS Oxygen: via non-rebreather mask Oxygen: 2 L/min via nasal cannula SUMMARY OF HEMODYNAMIC DATA Time AIR REST ECG 06:59:41 RA 2/5 (-1) 08:59:40 RV 36/-4, 0 09:00:03 PA 46/6 (25) PA 09:00:54 PW (20) PV 09:01:09 LV 166/-12, 7 09:05:44 LV 164/-12, 2 09:06:02 PW 34/29 (19) 09:06:02 LV 167/-12, 5 09:06:09 PW 28/ (19) 09:06:09 LV 162/-13, 16 09:07:34 LV 148/-12, 5 09:07:40 LVp 160/-17, 8 09:07:46 AOp 165/66 (104) 09:07:51 ECG 09:29:31 Type SV CO (l/m) CI (l/m/ HR Time AIR REST Thermal 428.60 6.00 2.88 14 06:59:41 Mckayla 422.90 5.92 2.85 14 06:59:41 Label % O2 Pres/Loc Time AIR REST AO 92 PV 09:32:24 PA 58 PA 09:32:36 Signed By Ayden Garcia MD On 01/08/2019 09:33:23 Ayden Garcia MD
[2019-01-08 10:56] LABS: Blood Gas Specimen Type VEN; VBG BASE EXCESS 7 mmol/L (-1.0-3.5); VBG Bicarbonate 32 mmol/L (22-26); VBG Oxygen Content 33 mmol/L (23-33); VBG PO2 33 mmHg (25-40); VBG SO2 63 % (50-70); VBG pCO2 50.6 mmHg (41-51); VBG pH 7.41 (7.32-7.42)
[2019-01-08 10:56] LABS: Base Excess 4 mmol/L (-2 to +2); Bicarbonate 28.7 mmol/L (22-26); Blood Gas Specimen Type ART; PO2 62 mmHG (75-100); SO2 92 % (95-99); Total Carbon Dioxide 30 mmol/L; pCO2 44.1 mmHg (35-45); pH 7.42 (7.35-7.45)
[2019-01-08 10:56] LABS: Blood Gas Specimen Type VEN; VBG BASE EXCESS 7 mmol/L (-1.0-3.5); VBG Bicarbonate 32 mmol/L (22-26); VBG Oxygen Content 34 mmol/L (23-33); VBG PO2 31 mmHg (25-40); VBG SO2 59 % (50-70); VBG pCO2 51.3 mmHg (41-51)
== END 2019-01-08 14:31 | disposition home or self-care (01) ==
LOC: CLSP 06:35
PROVIDERS: Family Provider Family Medicine; PCP Family Medicine; Referring Provider Internal Medicine Cardiovascular Disease; Visit Provider Internal Medicine Cardiovascular Disease
DX: I11.0 Hypertensive heart disease with heart failure (principal); I50.22 Chronic systolic (congestive) heart failure; J96.11 Chronic respiratory failure with hypoxia; I27.20 Pulmonary hypertension, unspecified; J44.9 Chronic obstructive pulmonary disease, unspecified; E78.5 Hyperlipidemia, unspecified; N40.1 Benign prostatic hyperplasia with lower urinary tract symptoms; R33.8 Other retention of urine; Z79.899 Other long term (current) drug therapy; Z87.19 Personal history of other diseases of the digestive system; Z87.891 Personal history of nicotine dependence
CPT/HCPCS: 82803; 93460; J7040; C1751; C1769; C1894; Q9967

== ENCOUNTER → 2019-01-22 13:45 | Outpatient (CLI) | payer MEDICARE, OTHER, SELFPAY ==
[2019-01-22 13:23] VITALS: BMI 21.0
[2019-01-22 14:55] LABS: Anion Gap 2 (5-15); BUN 16 mg/dL (7-18); BUN/Creat Ratio 13.7 RATIO (10-20); Calcium,Total 8.6 mg/dL (8.5-10.1); Chloride 99 mmol/L (98-107); Creatinine, Serum 1.17 mg/dL (0.70-1.30); EST Glomerular Filtration Rate 64 mL/min (>60); Est Glom Filt Rate - Afr Amer 77 mL/min (>60); Glucose 97 mg/dL (74-106); Potassium 3.3 mmol/L (3.5-5.1); Sodium Level 136 mmol/L (136-145)
[2019-02-03 17:58] LABS: Anion Gap 6 (5-15); BUN 18 mg/dL (7-18); BUN/Creat Ratio 12.9 RATIO (10-20); Calcium,Total 8.7 mg/dL (8.5-10.1); Chloride 101 mmol/L (98-107); Creatinine, Serum 1.39 mg/dL (0.70-1.30); EST Glomerular Filtration Rate 52 mL/min (>60); Est Glom Filt Rate - Afr Amer 63 mL/min (>60); Glucose 111 mg/dL (74-106); Potassium 3.4 mmol/L (3.5-5.1); Sodium Level 139 mmol/L (136-145)
== END ==
PROVIDERS: Family Provider Family Medicine; PCP Family Medicine; Referring Provider Physician Assistant Medical; Visit Provider Physician Assistant Medical
DX: I27.20 Pulmonary hypertension, unspecified (principal)
CPT/HCPCS: 36415; 80048

== ENCOUNTER → 2019-02-03 14:40 | Outpatient (CLI) | payer MEDICARE, OTHER, SELFPAY ==
[2019-01-27 13:27] VITALS: BMI 21.0
== END ==
PROVIDERS: Family Provider Family Medicine; PCP Family Medicine; Referring Provider Internal Medicine Cardiovascular Disease; Visit Provider Internal Medicine Cardiovascular Disease
DX: Z00.00 Encounter for general adult medical examination without abnormal findings (principal)

== ENCOUNTER → 2019-02-18 14:35 | Outpatient (CLI) | payer MEDICARE, OTHER, SELFPAY ==
[2019-01-27 13:27] VITALS: BMI 21.0
[2019-02-18 16:34] LABS: Anion Gap 6 (5-15); BUN 18 mg/dL (7-18); BUN/Creat Ratio 13.5 RATIO (10-20); Calcium,Total 8.7 mg/dL (8.5-10.1); Chloride 99 mmol/L (98-107); Creatinine, Serum 1.33 mg/dL (0.70-1.30); EST Glomerular Filtration Rate 55 mL/min (>60); Est Glom Filt Rate - Afr Amer 67 mL/min (>60); Glucose 138 mg/dL (74-106); Potassium 3.3 mmol/L (3.5-5.1); Sodium Level 139 mmol/L (136-145)
== END ==
PROVIDERS: Family Provider Family Medicine; PCP Family Medicine; Referring Provider Physician Assistant Medical; Visit Provider Physician Assistant Medical
DX: I50.22 Chronic systolic (congestive) heart failure (principal)
CPT/HCPCS: 36415; 80048

== ENCOUNTER → 2019-03-11 06:57 | Outpatient (CLI) | payer MEDICARE, OTHER, SELFPAY ==
[2019-01-27 13:27] VITALS: BMI 21.0
[2019-03-11 08:18] LABS: Anion Gap 5 (5-15); BUN 14 mg/dL (7-18); BUN/Creat Ratio 11.1 RATIO (10-20); Calcium,Total 8.9 mg/dL (8.5-10.1); Chloride 100 mmol/L (98-107); Creatinine, Serum 1.26 mg/dL (0.70-1.30); EST Glomerular Filtration Rate 59 mL/min (>60); Est Glom Filt Rate - Afr Amer 71 mL/min (>60); Glucose 93 mg/dL (74-106); Potassium 3.6 mmol/L (3.5-5.1); Sodium Level 138 mmol/L (136-145)
== END ==
PROVIDERS: Family Provider Family Medicine; PCP Family Medicine; Referring Provider Physician Assistant Medical; Visit Provider Physician Assistant Medical
DX: I50.22 Chronic systolic (congestive) heart failure (principal)
CPT/HCPCS: 36415; 80048

== ENCOUNTER → 2019-11-19 08:35 | Outpatient (CLI) | payer MEDICARE, OTHER, SELFPAY ==
[2019-08-19 12:59] VITALS: BMI 18.0
[2019-11-16 07:43] VITALS: BMI 18.0
--- NOTE | 2019-11-19 08:37 | ECHOD_ITS ---
Reason For Study: PHTN Procedure This was a 2D Doppler, Color Flow transthoracic echocardiogram. Limited views were obtained. The study was technically limited. Limited technical quality due to interstitial lung disease and body habitus. Exam performed in department. Left Ventricle Moderately dilated left ventricle. The estimated ejection fraction is 45 %. Stage 1 diastolic dysfunction. Septal motion consistent with IVCD. No regional wall motion abnormalities noted. Right Ventricle Moderately dilated right ventricle. Normal systolic function. Atria Normal left atrium. Normal right atrium. Normal atrial septum. Mitral Valve The mitral valve is structurally normal. No prolapse or stenosis seen. Trivial mitral valve insufficiency. Tricuspid Valve Normal tricuspid valve. Trivial tricuspid valve insufficiency. Right ventricular systolic pressure estimated to be 26 mmHg. Aortic Valve Trisinus/trileaflet aortic valve. Pulmonic Valve Normal pulmonic valve. Great Vessels Normal aortic root. Normal arch. Normal inferior vena cava. Inferior vena cava collapse with sniff. Pericardium/Pleural No pericardial effusion. MMode/2D Measurements & Calculations LVIDd: 5.5 cm IVSd: 0.67 cm Ao root diam: 2.8 cm LVIDs: 4.0 cm LVPWd: 0.83 cm RVDd: 4.3 cm FS: 27.1 % LAV(MOD-sp4): 45.3 ml LVAd ap4: 37.5 cm2 SV(MOD-sp4): 64.1 ml EDV(MOD-sp4): 139.0 ml EDV(sp4-el): 135.7 ml LVAs ap4: 25.8 cm2 ESV(MOD-sp4): 74.9 ml ESV(sp4-el): 76.0 ml EF(MOD-sp4): 46.1 % EF(sp4-el): 44.0 % SV(sp4-el): 59.7 ml LA A4 area: 16.4 cm2 LA dimension(2D): 3.4 cm RA A4 area: 15.6 cm2 Doppler Measurements & Calculations Lat Peak E' Imer: 8.9 cm/sec Med Peak E' Imer: 7.6 cm/sec TR max imer: 228.1 cm/sec TR max P.8 mmHg Interpretation Summary Moderately dilated left ventricle. The estimated ejection fraction is 45 %. Stage 1 diastolic dysfunction. Moderately dilated right ventricle. Trivial mitral valve insufficiency. Trivial tricuspid valve insufficiency. Right ventricular systolic pressure estimated to be 26 mmHg. Compared to echo report dated 11/30/2018, LV function appears to be slightly better from 40% to 45%, and RVSP has improved from 38 to 26 mmHg. Ordering Physician: Ayden Garcia Referring Physician: ROSIO CAIN Performed By: Kathryn Vargas RDCS, RVT
== END ==
PROVIDERS: Family Provider Family Medicine; PCP Family Medicine; Referring Provider Internal Medicine Cardiovascular Disease; Visit Provider Internal Medicine Cardiovascular Disease
DX: I50.22 Chronic systolic (congestive) heart failure (principal); J96.11 Chronic respiratory failure with hypoxia; J44.9 Chronic obstructive pulmonary disease, unspecified; I27.20 Pulmonary hypertension, unspecified
CPT/HCPCS: 93306

== ENCOUNTER → 2020-01-11 06:47 | Outpatient (CLI) | payer MEDICARE, OTHER, SELFPAY ==
[2019-12-09 15:32] VITALS: BMI 18.5
[2020-01-11 07:24] LABS: Anion Gap 4 (5-15); BUN 18 mg/dL (7-18); BUN/Creat Ratio 16.5 RATIO (10-20); Calcium,Total 9.2 mg/dL (8.5-10.1); Chloride 103 mmol/L (98-107); Creatinine, Serum 1.09 mg/dL (0.70-1.30); EST Glomerular Filtration Rate 69 mL/min (>60); Est Glom Filt Rate - Afr Amer 84 mL/min (>60); Glucose 102 mg/dL (74-106); Potassium 3.6 mmol/L (3.5-5.1); Sodium Level 140 mmol/L (136-145)
== END ==
PROVIDERS: PCP Family Medicine; Referring Provider Nurse Practitioner Family; Visit Provider Nurse Practitioner Family
DX: I50.22 Chronic systolic (congestive) heart failure (principal)
CPT/HCPCS: 36415; 80048

== ENCOUNTER → 2020-03-23 11:40 | Outpatient (CLI) | payer MEDICARE, OTHER, SELFPAY ==
[2020-02-16 08:01] VITALS: BMI 18.5
== END ==
PROVIDERS: PCP Family Medicine; Referring Provider Nurse Practitioner Acute Care; Visit Provider Nurse Practitioner Acute Care
DX: Z03.818 Encounter for observation for suspected exposure to other biological agents ruled out (principal)
CPT/HCPCS: 87635; G2023; U0004